=== PATIENT | female | born 1965 | race Caucasian/White ===

== ENCOUNTER 2019-01-10 15:00 | Outpatient (CLI) | payer BC ==
[~2019-01-10] VITALS: Ht 165.1 cm; Wt 94.8 kg
[2019-01-10] MEDS ORDERED: ROSU20TA31 PO (16:03)
[2019-01-10] MEDS ORDERED: CHOL500049 PO (16:03)
[2019-01-10] MEDS ORDERED: CHOL500050 PO (16:03)
[2019-01-10] MEDS ORDERED: FLUT9.9S NS (16:03)
[2019-01-10] MEDS ORDERED: RANI150T46 PO (16:03)
[2019-01-10] MEDS ORDERED: FISH1CAP15 PO (16:03)
[2019-01-10] MEDS ORDERED: METF-397 PO (16:03)
[2019-01-10] MEDS ORDERED: BUPR-42 PO (16:03)
[2019-01-11] MEDS ORDERED: ACHD5005 PO (12:37)
== END 2019-01-10 16:17 | disposition home or self-care (01) ==
LOC: PREOP 15:00
PROVIDERS: ATTEND Surgery
DX: Z01.818 Encounter for other preprocedural examination (principal)

== ENCOUNTER → 2019-01-10 | Outpatient (CLI) | payer BC ==
--- NOTE | 2019-01-03 14:25 | Diagnostic Imaging Report ---
INDICATION: Small cell lung carcinoma. Study is performed for initial staging. TECHNIQUE: Serum blood glucose level at the time of injection is 132 mg/dL. Patient was administered 13.4 mCi F-18 FDG intravenously and PET imaging from the top of skull to mid thighs was performed. Noncontrast CT was also performed for attenuation correction and anatomic correlation. FINDINGS: There is symmetric activity throughout the brain. Soft tissues of the neck are unremarkable. Imaging through the chest demonstrates an intensely hypermetabolic mass in the left hilum with SUV max of approximately 12. The area of nodular density peripheral to this in the superior segment of the left lower lobe does not demonstrate hypermetabolic activity. Pulmonary parenchyma is unremarkable. No metastatic nodules are seen. Imaging through the abdomen and pelvis demonstrates physiologic activity throughout the GI and tracts. No hypermetabolic lymphadenopathy is seen. IMPRESSION: Hypermetabolic left hilar mass correlating with patient's recently diagnosed lung carcinoma. No other mediastinal or hilar hypermetabolism is seen. No pulmonary parenchymal, abdominal or pelvic hypermetabolism is seen. Dictated by: Dictated on workstation # [id number]
[~2019-01-10] MED LIST: ACHD5005 PO; BUPR-42 PO; CHOL500049 PO; CHOL500050 PO; FISH1CAP15 PO; FLUT9.9S NS; GADOBUTROL 10 MMOL/10 ML (GADAVIST) VIAL IV ONE; METF-397 PO; RANI150T46 PO; ROSU20TA31 PO
--- NOTE | 2019-01-10 12:02 | Diagnostic Imaging Report ---
CLINICAL INDICATION: Patient with lung cancer. EXAM: MRI of the brain performed without and with 8 cc of Gadavist IV contrast. Sequences include axial DWI, ADC map, coronal gradient echo, axial T2, axial FLAIR, axial T1, axial T1 post IV contrast, coronal T1 fat-sat post IV contrast, and sagittal T1 post IV contrast. COMPARISON: None. FINDINGS: There is a very subtle 2 mm area of enhancement involving the posterior right frontal lobe which is best seen on the sagittal postcontrast sequence series 10, image 20 and coronal postcontrast sequence series 9, image 14. This is partially visualized on the axial sequence. There is no significant high T2 signal seen in the region. This area is nonspecific. There are no prior studies for comparison. There are no other areas concerning for abnormal IV contrast enhancement seen on this exam. There is pulsation artifact seen across the bilateral temporal lobes and frontal lobe regions. There is focal and patchy areas of high T2 signal white matter changes seen throughout both cerebral hemispheres, likely representing chronic small vessel ischemic disease. Brain parenchymal volume appears appropriate for patient's age. The [place] vascular structures show no gross abnormality as visualized. The pituitary gland, sella, and suprasellar regions are unremarkable as visualized. There is no evidence of hydrocephalus. The basal cisterns are unremarkable. The extra-cranial soft tissue, skull, and orbits are unremarkable. There is a small mucus retention cyst involving the left maxillary sinus. There is a small amount of fluid in the left mastoid air cells. IMPRESSION: 1: There is a very subtle 2 mm area of enhancement in the posterior right frontal lobe region which is mainly seen on the coronal and sagittal postcontrast sequences. There is no associated high T2 signal in the area. This area is nonspecific, but metastatic disease should be excluded. Followup MRI of the brain with and without contrast in two months is suggested for further evaluation. High-resolution 3D T1 or FSPGR pre- and postcontrast sequences should be obtained to better evaluate this area. 2: Otherwise, the remainder of the brain parenchyma is unremarkable for patient's age with mild chronic small vessel ischemic disease. 3: Mild paranasal sinus disease and a small amount of fluid in the left mastoid air cells. Dictated by: Dictated on workstation # [id number]
== END ==
LOC: RAD 01-03 09:00
PROVIDERS: ATTEND Internal Medicine Hematology & Oncology
DX: C34.90 Malignant neoplasm of unspecified part of unspecified bronchus or lung (principal); I67.82 Cerebral ischemia; J32.8 Other chronic sinusitis
CPT/HCPCS: 70553

== ENCOUNTER 2019-01-11 11:16 | Day surgery (SDC) | payer BC ==
[~2019-01-11] VITALS: Ht 165.1 cm; Wt 94.8 kg
[2019-01-11] VITALS (8 sets, daily range): BP systolic 123–133; BP diastolic 73–92
[~2019-01-11 11:16] MED LIST changes: -ACHD5005 PO; -GADOBUTROL 10 MMOL/10 ML (GADAVIST) VIAL IV ONE
[2019-01-11] MEDS ORDERED: BUP/EPI 0.5% 1:200,000 (SENSORCAINE) 30 ML VIAL ONE (11:29)
[2019-01-11] MEDS ORDERED: HEParin (CENTRAL IV FLUSH) 500 UNIT/5 ML SYR ONE (11:29)
[2019-01-11] MEDS ORDERED: 0.9% SODIUM CHLORIDE PF INJ 20 ML VIAL ONE (11:30)
[2019-01-11] MEDS ORDERED: LIDOCAINE 1% INJ 20 ML 20 ML VIAL ONE (11:30)
--- OUTSIDE RECORDS SUMMARY | 2019-01-11 11:31 | XMS REPORT | Continuity of Care Document ---
Author Author [facility] Address [address] [place] [address] Care Team Providers Care Manager Sql Name Role Phone Marlene Gr PCP Unavailable Marlene Gr Attphys Unavailable Allergies, Adverse Reactions, Alerts Allergen Type Severity Reaction Last Updated Verified Status clonazepam Allergy Unknown UNKNOWN November 27, 2018 Y Active Penicillins Allergy Unknown UNKNOWN November 27, 2018 Y Active varenicline Allergy Unknown UNKNOWN November 27, 2018 Y Active Medications Active Medications Medication Dose Units Route Sig Qty Days Start Date Status Loratadine [Claritin] 10 MG Oral daily May 17, 2018 Active [place]-3 Fatty Acids [Fish Oil Concentrate] 1000 MG Oral daily May 17, 2018 Active Cholecalciferol (Vitamin D3) 4000 UNIT Oral daily May 17, 2018 Active Folic Acid 1 MG Oral daily May 17, 2018 Active Ranitidine Hcl [Zantac] 150 MG Oral Twice a Day May 17, 2018 Active Fluticasone Propionate [Flonase Allergy Relief] 2 SPRAY Nasal daily 18.2 November 23, 2018 Active Metformin 500 MG Oral Twice a Day 180 November 23, 2018 Active Sulfamethoxazole-Trimethoprim 1 TAB Oral Twice a Day 20 10 November 23, 2018 Active Bupropion Hcl 150 MG Oral Once 90 November 23, 2018 Active Discontinued Medications Medication Dose Units Route Sig Qty Days Start Date Discontinued Date Status Fluticasone Propionate [Flonase Allergy Relief] 2 SPRAY Nasal daily May 17, 2018 November 23, 2018 Discontinued Rosuvastatin [Crestor] 20 MG Oral daily May 17, 2018 May 17, 2018 Discontinued Ranitidine Hcl [Zantac] 150 MG Oral daily May 17, 2018 May 17, 2018 Discontinued Methotrexate Sodium 10 MG Oral .once weekly May 17, 2018 November 23, 2018 Discontinued Metformin 500 MG Oral Twice a Day May 17, 2018 May 17, 2018 Discontinued Bupropion Hcl [Wellbutrin Sr] 150 MG Oral Twice a Day May 17, 2018 November 23, 2018 Discontinued Metformin 500 MG Oral Twice a Day 180 May 17, 2018 November 23, 2018 Discontinued Rosuvastatin [Crestor] 20 MG Oral daily 90 May 17, 2018 November 23, 2018 Discontinued Problem List Active Problems Medical Problem Onset Date Status History of abnormal cervical Pap smear Active JUSTIN (dyspnea on exertion) Active Diabetes mellitus Active Anxiety Active Arthritis Active Depression Active Seasonal allergies Active Migraines Active Hyperlipidemia Active Psoriasis Active Tobacco abuse Active Abscess of skin of abdomen Active Mass of left lung Active Diabetes mellitus type 2 in obese Active Screening for breast cancer Active Pleurisy Active Vitamin D deficiency Active Inactive/Resolved Problems Medical Problem Onset Date Status Abscess, suprapubic Resolved Procedures Procedure Date Status MM screening mammo BI November 30, 2018 completed Respiratory Panel (PCR) November 27, [address] angio chest PE protocol November 27, 2018 completed XR chest 1V November 27, 2018 completed Relevant Diagnostic Tests and/or Laboratory Data Laboratory Results Test Date/Time Result Interp. Ref. Range Result Comment White Blood Count November 27, 2018 3:21pm 6.0 10^3/uL 4.5-11.0 Red Blood Count November 27, 2018 3:21pm 4.24 10^6/uL 3.50-5.40 Hemoglobin November 27, 2018 3:21pm 14.5 g/dL 12.0-16.0 Hematocrit November 27, 2018 3:21pm 41.9 % 36-48 Mean Corpuscular Volume November 27, 2018 3:21pm 98.9 fL 79-99 Mean Corpuscular Hemoglobin November 27, 2018 3:21pm 34.2 pg High 25.0-34.0 Mean Corpuscular Hemoglobin Concent November 27, 2018 3:21pm 34.6 g/dL 31.0- 36.0 Red Cell Distribution Width November 27, 2018 3:21pm 13.2 % 11.0-15.0 Platelet Count November 27, 2018 3:21pm 179 10^3 uL 130-400 Mean Platelet Volume November 27, 2018 3:21pm 9.6 fL 7.0-11.0 Neutrophils (%) (Auto) November 27, 2018 3:21pm 71.5 % 43.0-72.0 Lymphocytes (%) (Auto) November 27, 2018 3:21pm 15.7 % 15.0-45.0 Monocytes (%) (Auto) November 27, 2018 3:21pm 8.8 % 1.0-12.0 Eosinophils (%) (Auto) November 27, 2018 3:21pm 3.6 % 0.0-6.0 Basophils (%) (Auto) November 27, 2018 3:21pm 0.4 % 0.0-2.0 Neutrophils # (Auto) November 27, 2018 3:21pm 4.3 10^3 uL 1.0-8.0 Lymphocytes # (Auto) November 27, 2018 3:21pm 0.9 10^3 uL Low 1.0-3.0 Monocytes # (Auto) November 27, 2018 3:21pm 0.5 10^3 uL 0.0-1.0 Eosinophils # (Auto) November 27, 2018 3:21pm 0.2 10^3 uL 0.0-0.4 Basophils # (Auto) November 27, 2018 3:21pm 0.0 10^3 uL 0.0-0.2 D-Dimer November 27, 2018 3:21pm 0.88 ug/mL High <0.50 D-Dimer results: D-Dimer less than 0.50 mg/L and otherwise normal patient history=LOW PROBABILITY OF DVT/PE. D=Dimer greater than 0.50 mg/L=CONTINUE INVESTIGATION TO RULE OUT DVT/PE. Comment: A thrombolytic event cannot be excluded with certainty based solely on D-Dimer result. D-Dimer may also be elevated in a variety of disorders including sepsis, DIC, trauma, liver disease, hematoma, malignancy, stress, heavy exercising, advanced age, , coronary disease, inflammation, diabetes and thrombolytic therapy. D-Dimer levels may be decreased in patients on anticoagulant therapy. Urine Color November 27, 2018 6:35pm Yellow Yellow Urine Appearance November 27, 2018 6:35pm Clear Clear Urine pH November 27, 2018 6:35pm 6.0 4.5 - 7.5 Urine Specific [place] November 27, 2018 6:35pm 1.010 1.010-1.025 Urine Protein November 27, 2018 6:35pm Negative Neg-Trace Urine Glucose (UA) November 27, 2018 6:35pm Negative Negative Urine Ketones November 27, 2018 6:35pm Negative Negative Urine Blood November 27, 2018 6:35pm Negative Negative Urine Nitrite November 27, 2018 6:35pm Negative Negative Urine Bilirubin November 27, 2018 6:35pm Negative Negative Urine Urobilinogen November 27, 2018 6:35pm 0.2 <=1.0 Urine Leukocyte Esterase November 27, 2018 6:35pm Negative Negative Urine Culture Indicated November 27, 2018 6:35pm Not Indicated No Culture Reflex Ordered. The specimen did not meet the following criteria OR contained >25 epithelials, indicating contamination. * Culture Criteria: * * * * Urinalysis Leukocyte 1+ or > * * Urinalysis Nitrates + * * Microscopic WBC 10 or > * * Microscopic Bacteria 2+ or > * * Microscopic Yeast 2+ or > * Urinalysis Comment November 27, 2018 6:35pm See comment Asymptomatic bacteriuria should seldom if ever be treated unless related to or urologic surgery. Symptomatic urinary tract infection (UTI) is defined by 2 or more of the following without an alternative explanation: - Fever - Flank pain or tenderness - Suprapubic pain or tenderness - Costovertebral angle pain or tenderness - Acute hematuria - Dysuria - New or marked increase in frequency / urgency Pyuria alone is not a criterion for symptomatic UTI. Source: CDC National Healthcare Safety Network Criteria for Defining UTI Events Treatment recommendations 1st line: Nitrofurantoin for 5 days; Bactrim DS for 3 days 2nd line: Beta-lactams for 5 days; Cipro or Levaquin for 3 days [place] Fluoroquinolones for severe infections or those with no alternative treatment options. Serious adverse effects outweigh benefits for patients with uncomplicated infections Sodium Level November 27, 2018 3:21pm 139 mmol/L 135-150 Potassium Level November 27, 2018 3:21pm 4.1 mmol/L 3.4-5.2 Chloride Level November 27, 2018 3:21pm 104 mmol/L 100-112 Carbon Dioxide Level November 27, 2018 3:21pm 23 mEq/L 18-30 Anion Gap November 27, 2018 3:21pm 12 mmol/L High 8-11 Blood Urea Nitrogen November 27, 2018 3:21pm 9 mg/dL 5-21 Creatinine November 27, 2018 3:21pm 1.02 mg/dL 0.60-1.30 Glomerular Filtration Rate Calc November 27, 2018 3:21pm 57 mL/Min > 60 The GFR is not validated for use in drug dosing adjustments. Continue to use estimated creatinine clearance per dosing reference text. Chronic Kidney Disease is defined as either kidney damage or a GFR less than 60 ml/min that persists for at least 3 months. Stage 3=30-59 ml/min Stage 4=15-29 ml/min Stage 5=<15 ml/min Glucose Level November 27, 2018 3:21pm 131 mg/dL High 70-99 Calcium Level November 27, 2018 3:21pm 9.6 mg/dL 8.6-10.5 Total Bilirubin November 27, 2018 3:21pm 0.2 mg/dL 0.0-1.2 Aspartate Amino Transf (AST/SGOT) November 27, 2018 3:21pm 14 U/L 6-37 Alanine Aminotransferase (ALT/SGPT) November 27, 2018 3:21pm 14 U/L 12-78 Troponin I November 27, 2018 3:21pm < 0.01 ng/mL 0.00-0.05 B-Type Natriuretic Peptide November 27, 2018 3:21pm 10.4 pg/mL <99 Total Protein November 27, 2018 3:21pm 7.3 g/dL 6.4-8.2 Albumin November 27, 2018 3:21pm 3.8 g/dL 3.3-4.5 Albumin/Globulin Ratio November 27, 2018 3:21pm 1.1 0.7-2.0 Alkaline Phosphatase November 27, 2018 3:21pm 98 U/L 50-136 Procalcitonin November 27, 2018 3:21pm 0.05 ng/mL 0.00-0.10 PCT Conc. Interpretation < 0.5 ng/mL Low risk for progression to severe sepsis &/or shock 0.5-2.0 ng/mL Sepsis should be considered > 2.0 ng/mL High risk for progression to severe sepsis &/or shock Microbiology Results Procedure Source Result Collection Date/Time Result Date/Time Respiratory Panel (PCR) Nasopharyngeal No results entered November 27, 2018 6: 35pm Chief Complaint and Reason for Visit Encounter Admit Date Chief Complaint Reason for Visit Departed Clinical November 30, 2018 3:07pm Encounter for screening mammogram for malignant ne Hospital Discharge Instructions No known hospital discharge instructions. Hospital Discharge Medications Medication Dose Units Route Sig Qty Days Order Date Status Instructions Loratadine 10 MG Oral daily May 17, 2018 Active Fluticasone Propionate 2 SPRAY Nasal daily May 17, 2018 Discontinued Rosuvastatin 20 MG Oral daily May 17, 2018 Discontinued Topaz-3 Fatty Acids 1000 MG Oral daily May 17, 2018 Active Cholecalciferol (Vitamin D3) 4000 UNIT Oral daily May 17, 2018 Active Ranitidine Hcl 150 MG Oral daily May 17, 2018 Discontinued Methotrexate Sodium 10 MG Oral .once weekly May 17, 2018 Discontinued Metformin 500 MG Oral Twice a Day May 17, 2018 Discontinued Bupropion Hcl 150 MG Oral Twice a Day May 17, 2018 Discontinued Folic Acid 1 MG Oral daily May 17, 2018 Active Ranitidine Hcl 150 MG Oral Twice a Day May 17, 2018 Active Metformin 500 MG Oral Twice a Day 180 May 17, 2018 Discontinued Rosuvastatin 20 MG Oral daily 90 May 17, 2018 Discontinued Fluticasone Propionate 2 SPRAY Nasal daily 18.2 November 23, 2018 Active Metformin 500 MG Oral Twice a Day 180 November 23, 2018 Active Sulfamethoxazole-Trimethoprim 1 TAB Oral Twice a Day 20 10 November 23, 2018 Active Bupropion Hcl 150 MG Oral Once 90 November 23, 2018 Active Encounters Encounter Facility Location Admit/Visit Date Discharge/Departure Date Attending Provider Departed Clinical [facility] Radiology November 30, 2018 3:07pm November 30, 2018 3:08pm Marlene Gr Departed Emergency [facility] Emergency Department November 27, 2018 2:57pm November 27, 2018 9:22pm Functional Status No known functional status. Immunizations Immunization Name Date Given Type Tetanus, Diphtheria, Pertussis (Tdap) November 04, 2016 Historical Payers Payer Name Policy Type Covered Republican Covered Republican Id Relationship Subscriber Subscriber Id [employer] Walter Castro [id number] Walter Castro [id number] Self Pay Plan of Care No Known Plan of Care Information Social History No known social history. Vital Signs Vital Reading Result Reference Range Collection Date/Time Height 5 ft 5 in November 27, 2018 3:03pm Weight 214 lb November 27, 2018 3:03pm Temperature 97.6 F 97.5 F-99.5 F November 27, 2018 3:03pm Pulse 98 BPM 60-90 November 27, 2018 3:03pm Respiration 24 RPM 12-20 November 27, 2018 3:03pm Pulse Oximetry 95 % 90-100 November 27, 2018 3:03pm Blood Pressure Systolic 155 100-160 November 27, 2018 3:03pm Blood Pressure Diastolic 96 50-80 November 27, 2018 3:03pm Body Mass Index 35.6 November 27, 2018 3:03pm
--- OUTSIDE RECORDS SUMMARY | 2019-01-11 11:31 | XMS REPORT | Continuity of Care Document ---
Author Author [facility] Address [address] [place] [address] Care Team Providers Care It Security Consulting Director Name Role Phone Unavailable Unavailable Allergies, Adverse Reactions, Alerts Allergen Type Severity Reaction Last Updated Verified Status clonazepam Allergy Unknown UNKNOWN November 27, 2018 Y Active Penicillins Allergy Unknown UNKNOWN November 27, 2018 Y Active varenicline Allergy Unknown UNKNOWN November 27, 2018 Y Active Medications Active Medications Medication Dose Units Route Sig Qty Days Start Date Status Loratadine [Claritin] 10 MG Oral daily May 17, 2018 Active [place]-3 Fatty Acids [Fish Oil Concentrate] 1000 MG [...] a Day 180 November 23, 2018 Active Bupropion Hcl 150 MG Oral Once 90 November 23, 2018 Active Rosuvastatin 20 MG Oral daily 30 December 01, 2018 Active Cholecalciferol (Vitamin D3) 56885 UNIT Oral Weekly 12 84 December 01, 2018 Active Discontinued Medications Medication Dose Units [...] May 17, 2018 November 23, 2018 Discontinued Sulfamethoxazole-Trimethoprim 1 TAB Oral Twice a Day 20 10 November 23, 2018 December 03, 2018 Discontinued Problem List Active Problems Medical [...] screening mammo BI November 30, 2018 completed Reason for Referral Reason for Referral Date Referral was Provided Provider Office Contact Location December 05, 2018 AGUSTIN BONNER Relevant Diagnostic Tests and/or Laboratory Data No known relevant diagnostic tests, laboratory data, and/or discharge summary. Hospital Discharge Instructions No known hospital discharge instructions. Hospital Discharge Medications Medication Dose Units Route Sig Qty Days Order Date Status Instructions Loratadine 10 MG Oral daily May 17, 2018 Active Fluticasone Propionate 2 SPRAY Nasal daily May 17, 2018 Discontinued Rosuvastatin 20 MG Oral daily May 17, 2018 Discontinued [place]-3 Fatty Acids 1000 MG Oral daily May [...] a Day 20 10 November 23, 2018 Discontinued Bupropion Hcl 150 MG Oral Once 90 November 23, 2018 Active Rosuvastatin 20 MG Oral daily 30 December 01, 2018 Active Cholecalciferol (Vitamin D3) 84548 UNIT Oral Weekly 12 84 December 01, 2018 Active Encounters Encounter Facility Location Admit/Visit Date Discharge/Departure Date Attending Provider Registered Inpatient [facility] December 05, 2018 1:51pm Marlene Gr Departed Clinical [facility] Radiology November 30, 2018 3:07pm November 30, 2018 3:08pm Marlene Gr Functional Status No known functional status. Immunizations Immunization Name Date Given Type Tetanus, Diphtheria, Pertussis (Tdap) November 04, 2016 Historical Payers Payer Name Policy Type Covered Alliance Party Covered Alliance Party Id Relationship Subscriber Subscriber Id [facility] [employer] Walter Castro [id number] Walter Castro [id number] Self Pay Plan of Care No Known Plan of Care Information Social History No known social history. Vital Signs No known vital signs results.
--- OUTSIDE RECORDS SUMMARY | 2019-01-11 11:31 | XMS REPORT | Continuity of Care Document ---
Author Author [facility] Address [address] [place] [place] [address] Care Team Providers Care Fun House Operator Name Role Phone Marlene Gr PCP Unavailable Juanito Reyes Jr, Rndphys Unavailable Allergies, Adverse Reactions, Alerts Allergen Type Severity Reaction Last Updated Verified Status clonazepam Allergy Unknown UNKNOWN November 27, 2018 Y Active Penicillins Allergy Unknown UNKNOWN November 27, 2018 Y Active varenicline Allergy Unknown UNKNOWN November 27, 2018 Y Active Medications Active Medications Medication Dose Units Route Sig Qty Days Start Date Status Loratadine [Claritin] 10 MG Oral daily May 17, 2018 Active [place]-3 Fatty Acids [Fish Oil Concentrate] 1000 MG [...] Abscess, suprapubic Resolved Procedures Procedure Date Status Respiratory Panel (PCR) November 27, 2018 completed [...] 27, 2018 3:21pm 0.0 10^3 uL 0.0-0.2 Neutrophils % (Manual) November 23, 2018 10:38am 70.0 % High 50-65 Band Neutrophils % (Manual) November 23, 2018 10:38am 1.0 % 0-10 Lymphocytes % (Manual) November 23, 2018 10:38am 19.0 % 15-45 Monocytes % (Manual) November 23, 2018 10:38am 10.0 % 0-10 Neutrophils # (Manual) November 23, 2018 10:38am 5.1 # 1.0-8.0 Lymphocytes # (Manual) November 23, 2018 10:38am 1.4 # 1.0-3.0 Monocytes # (Manual) November 23, 2018 10:38am 0.7 # 0.0-1.0 D-Dimer November 27, 2018 3:21pm 0.88 ug/mL [...] November 27, 2018 6:35pm Clear Clear Urine Appearance November 23, 2018 2:09pm Clear Clear Urine pH November 27, 2018 6:35pm 6.0 4.5 - 7.5 Urine Specific [place] November 27, 2018 6:35pm 1.010 1.010-1.025 Urine Protein November 27, 2018 6:35pm Negative Neg-Trace Urine Protein November 23, 2018 2:09pm Negative Neg-Trace Urine Glucose (UA) November 27, 2018 6:35pm Negative Negative Urine Ketones November 27, 2018 6:35pm Negative Negative Urine Blood November 27, 2018 6:35pm Negative Negative Urine Blood November 23, 2018 2:09pm Negative Negative Urine Nitrite November 27, 2018 6:35pm Negative Negative Urine Nitrite November 23, 2018 2:09pm Negative Negative Urine Bilirubin November 27, 2018 6:35pm Negative Negative Urine Urobilinogen November 27, 2018 6:35pm 0.2 <=1.0 Urine Leukocyte Esterase November 27, 2018 6:35pm Negative Negative Urine Leukocyte Esterase November 23, 2018 2:09pm Negative Negative Urine Culture Indicated November 27, [...] not a criterion for symptomatic UTI. Source: [facility] National Healthcare Safety Network Criteria for Defining UTI Events Treatment recommendations 1st line: Nitrofurantoin for 5 days; Bactrim DS for 3 days 2nd line: Beta-lactams for 5 days; Cipro or Levaquin for 3 days [place] Fluoroquinolones for severe infections or those with [...] 27, 2018 3:21pm 131 mg/dL High 70-99 Hemoglobin A1c November 23, 2018 10:38am 5.8 % <6.4 Hemoglobin A1C levels are related to mean blood glucose during the preceding 2 - 3 months. The relationship table below may be used as a general guide. HGB A1C APPROX. MEAN GLUCOSE 5% 97 mg/dL 6% 126 mg/dL 7% 154 mg/dL 8% 183 mg/dL 9% 212 mg/dL 10% 240 mg/dL 11% 269 mg/dL 12% 298 mg/dL Each 1% increase in HGB A1C is a reflection of an increase in mean glucose of approximately 30 mg/dl. Calcium Level November 27, 2018 3:21pm 9.6 [...] November 27, 2018 3:21pm 98 U/L 50-136 Thyroid Stimulating Hormone (Reflex November 23, 2018 10:38am 0.636 uIU/mL 0.35-4.94 25-Hydroxy Vitamin D Total November 23, 2018 10:38am 19 ng/mL Low 30-100 Procalcitonin November 27, 2018 3:21pm 0.05 ng/mL 0.00-0.10 PCT Conc. Interpretation < 0.5 ng/mL Low risk for progression to severe sepsis &/or shock 0.5-2.0 ng/mL Sepsis should be considered > 2.0 ng/mL High risk for progression to severe sepsis &/or shock Lipoprotein Evaluation November 23, 2018 10:38am See Separate Report Microbiology Results Procedure Source Result Collection Date/Time Result Date/Time Respiratory Panel (PCR) Nasopharyngeal No results entered November 27, 2018 6: 35pm Chief Complaint and Reason for Visit Encounter Admit Date Chief Complaint Reason for Visit Departed Emergency November 27, 2018 2:57pm Chest pain Hospital Discharge Instructions No known hospital discharge instructions. Hospital Discharge Medications Medication Dose Units Route Sig Qty Days Order Date Status Instructions Loratadine 10 MG Oral daily May 17, 2018 Active Fluticasone Propionate 2 SPRAY Nasal daily May 17, 2018 Discontinued Rosuvastatin 20 MG Oral daily May 17, 2018 Discontinued [place]-3 Fatty Acids 1000 MG Oral daily May [...] Admit/Visit Date Discharge/Departure Date Attending Provider Departed Emergency [facility] Emergency Department November 27, 2018 2:57pm November 27, 2018 9:22pm Departed [facility] October 10:37am November 23, 2018 10:38am Marlene Gr Departed Physician/Provider Office Visit [facility] Family Medicine November 23, 2018 9:07am November 23, 2018 3:39pm Marlene Gr Functional Status No known functional status. Immunizations Immunization Name Date Given Type Tetanus, Diphtheria, Pertussis (Tdap) November 04, 2016 Historical Payers Payer Name Policy Type Covered Alliance Party Covered Alliance Party Id Relationship Subscriber Subscriber Id [facility] [employer] Walter Castro [id number] Walter Castro [id number] Self Pay Plan of Care No Known [...]
--- OUTSIDE RECORDS SUMMARY | 2019-01-11 11:32 | XMS REPORT | Continuity of Care Document ---
Author Author [facility] Address [address] [place] [address] Care Team Providers Care Activities Aide Name Role Phone Marlene Gr PCP Marlene Gr Attphys Allergies, Adverse Reactions, Alerts Allergen Type Severity Reaction Last Updated Verified Status clonazepam Allergy Unknown UNKNOWN May 17, 2018 Y Active Penicillins Allergy Unknown UNKNOWN May 17, 2018 Y Active varenicline Allergy Unknown UNKNOWN May 17, 2018 Y Active Medications Active Medications Medication Dose Units Route Sig Qty Start Date Status Loratadine [Claritin] 10 MG Oral every day May 17, 2018 Active Fluticasone [Flonase Allergy Relief] 2 SPRAY Nasal every day May 17, 2018 Active [place]-3 Fatty Acids [Fish Oil Concentrate] 1000 MG Oral every day May 17, 2018 Active Cholecalciferol (Vitamin D3) 4000 UNIT Oral every day May 17, 2018 Active Methotrexate Sodium 10 MG Oral .once weekly May 17, 2018 Active Bupropion Hcl [Wellbutrin Sr] 150 MG Oral Twice a Day May 17, 2018 Active Folic Acid 1 MG Oral every day May 17, 2018 Active Ranitidine Hcl [Zantac] 150 MG Oral Twice a Day May 17, 2018 Active Metformin 500 MG Oral Twice a Day 180 May 17, 2018 Active Rosuvastatin [Crestor] 20 MG Oral every day 90 May 17, 2018 Active Discontinued Medications Medication Dose Units Route Sig Qty Start Date Discontinued Date Status Rosuvastatin [Crestor] 20 MG Oral every day May 17, 2018 May 17, 2018 Discontinued Ranitidine Hcl [Zantac] 150 MG Oral every day May 17, 2018 May 17, 2018 Discontinued Metformin 500 MG Oral Twice a Day May 17, 2018 May 17, 2018 Discontinued Problem List Active Problems Medical Problem Onset Date Status Abscess, suprapubic Active Diabetes mellitus Active Anxiety Active Arthritis Active Depression Active Seasonal allergies Active Migraines Active Hyperlipidemia Active Psoriasis Active Procedures No known history of procedures. Relevant Diagnostic Tests and/or Laboratory Data Laboratory Results Test Date/Time Result Interp. Ref. Range Result Comment Sodium Level May 17, 2018 9:11am 142 mmol/L 135-150 Potassium Level May 17, 2018 9:11am 4.1 mmol/L 3.4-5.2 Chloride Level May 17, 2018 9:11am 107 mmol/L 100-112 Carbon Dioxide Level May 17, 2018 9:11am 26 mEq/L 18-30 Anion Gap May 17, 2018 9:11am 9 mmol/L 8-11 Blood Urea Nitrogen May 17, 2018 9:11am 8 mg/dL 5-21 Creatinine May 17, 2018 9:11am 0.81 mg/dL 0.60-1.30 Glomerular Filtration Rate Calc May 17, 2018 9:11am > 60 mL/Min The GFR is not validated for use in drug dosing adjustments. Continue to use estimated creatinine clearance per dosing reference text. Chronic Kidney Disease is defined as either kidney damage or a GFR less than 60 ml/min that persists for at least 3 months. Stage 3=30-59 ml/min Stage 4=15-29 ml/min Stage 5=<15 ml/min Glucose Level May 17, 2018 9:11am 107 mg/dL High 70-99 Hemoglobin A1c May 17, 2018 9:11am 5.7 % Hemoglobin A1C levels are related to mean [...] glucose of approximately 30 mg/dl. Calcium Level May 17, 2018 9:11am 9.3 mg/dL 8.6-10.5 Total Bilirubin May 17, 2018 9:11am 0.4 mg/dL 0.0-1.2 Aspartate Amino Transf (AST/SGOT) May 17, 2018 9:11am 11 U/L 6-37 Alanine Aminotransferase (ALT/SGPT) May 17, 2018 9:11am 10 U/L Low 12 -78 Total Protein May 17, 2018 9:11am 7.1 g/dL 6.4-8.2 Albumin May 17, 2018 9:11am 3.9 g/dL 3.3-4.5 Albumin/Globulin Ratio May 17, 2018 9:11am 1.2 0.7-2.0 Triglycerides Level May 17, 2018 9:11am 185 mg/dL High LDL Cholesterol Direct May 17, 2018 9:11am 61 mg/dL Alkaline Phosphatase May 17, 2018 9:11am 96 U/L 50-136 Advance Directives Advance Directive Response Recorded Date/Time Advance Directive on File? GIVEN November 18, 2017 10:49am Hospital Discharge Instructions No known hospital discharge instructions. Hospital Discharge Medications Medication Dose Units Route Sig Qty Days Order Date Status Instructions Loratadine 10 MG Oral every day May 17, 2018 Active Fluticasone 2 SPRAY Nasal every day May 17, 2018 Active Rosuvastatin 20 MG Oral every day May 17, 2018 Discontinued [place]-3 Fatty Acids 1000 MG Oral every day May 17, 2018 Active Cholecalciferol (Vitamin D3) 4000 UNIT Oral every day May 17, 2018 Active Ranitidine Hcl 150 MG Oral every day May 17, 2018 Discontinued Methotrexate Sodium 10 MG Oral .once weekly May 17, 2018 Active Metformin 500 MG Oral Twice a Day May 17, 2018 Discontinued Bupropion Hcl 150 MG Oral Twice a Day May 17, 2018 Active Folic Acid 1 MG Oral every day May 17, 2018 Active Ranitidine Hcl 150 MG Oral Twice a Day May 17, 2018 Active Metformin 500 MG Oral Twice a Day 180 May 17, 2018 Active Rosuvastatin 20 MG Oral every day 90 May 17, 2018 Active Encounters Encounter Facility Location Admit/Visit Date Discharge/Departure Date Attending Provider Departed [facility] in Clinic May 17, 2018 9:09am May 17, 2018 9:10am Marlene Gr Departed Physician/Provider Office Visit [facility] Family Medicine May 17, 2018 8:24am May 17, 2018 3:59pm Marlene Gr Functional Status No known functional status. Immunizations No known immunizations. Payers Payer Name Policy Type Covered Democrat Covered Democrat Id Relationship Subscriber Subscriber Id [facility] Commerical Walter Castro [id number] Walter Castro [id number] Self Pay Plan of Care No Known Plan of Care Information Social History Query Response Date Recorded Comment second hand exposure Yes May 17, 2018 8:40pm substance use type does not use May 17, 2018 8:40pm Query Response Start Date Stop Date Smoking Status Current every day smoker Vital Signs Vital Reading Result Reference Range Collection Date/Time Height 5 ft 5 in May 17, 2018 8:41am Weight 200 lb May 17, 2018 8:41am Temperature 97.8 F 97.5 F-99.5 F May 17, 2018 8:41am Pulse 95 BPM 60-90 May 17, 2018 8:41am Respiration 20 RPM 12-20 May 17, 2018 8:41am Pulse Oximetry 94 % 90-100 May 17, 2018 8:41am Blood Pressure Systolic 110 100-160 May 17, 2018 8:41am Blood Pressure Diastolic 84 50-80 May 17, 2018 8:41am Body Mass Index 33.3 May 17, 2018 8:41am
--- OUTSIDE RECORDS SUMMARY | 2019-01-11 11:32 | XMS REPORT | Continuity of Care Document ---
Author Author [facility] Address [address] [place] [address] Care Team Providers Care Hvac Sales Representative Name Role Phone Unavailable Unavailable Allergies, Adverse Reactions, Alerts Allergen Type Severity Reaction Last Updated Verified Status clonazepam Allergy Unknown UNKNOWN November 23, 2018 Y Active Penicillins Allergy Unknown UNKNOWN November 23, 2018 Y Active varenicline Allergy Unknown UNKNOWN November 23, 2018 Y Active Medications Active Medications Medication Dose Units Route Sig Qty Days Start Date Status Loratadine [Claritin] 10 MG Oral daily May 17, 2018 Active [place]-3 Fatty Acids [Fish Oil Concentrate] 1000 MG [...] Active Procedures No known history of procedures. Reason for Referral Referral information is unavailable. Relevant Diagnostic Tests and/or Laboratory Data Laboratory Results Test Date/Time Result Interp. Ref. Range Result Comment White Blood Count November 23, 2018 10:38am 7.2 10^3/uL 4.5-11.0 Red Blood Count November 23, 2018 10:38am 4.49 10^6/uL 3.50-5.40 Hemoglobin November 23, 2018 10:38am 15.3 g/dL 12.0-16.0 Hematocrit November 23, 2018 10:38am 44.5 % 36-48 Mean Corpuscular Volume November 23, 2018 10:38am 98.9 fL 79-99 Mean Corpuscular Hemoglobin November 23, 2018 10:38am 33.9 pg 25.0-34.0 Mean Corpuscular Hemoglobin Concent November 23, 2018 10:38am 34.3 g/dL 31.0 -36.0 Red Cell Distribution Width November 23, 2018 10:38am 13.2 % 11.0-15.0 Platelet Count November 23, 2018 10:38am 218 10^3 uL 130-400 Mean Platelet Volume November 23, 2018 10:38am 10.1 fL 7.0-11.0 Neutrophils % (Manual) November 23, 2018 10:38am [...] November 23, 2018 10:38am 0.7 # 0.0-1.0 Urine Color November 23, 2018 2:09pm Yellow Yellow Urine Appearance November 23, 2018 2:09pm Clear Clear Urine pH November 23, 2018 2:09pm 7.0 4.5 - 7.5 Urine Specific [place] November 23, 2018 2:09pm 1.015 1.010-1.025 Urine Protein November 23, 2018 2:09pm Negative Neg-Trace Urine Glucose (UA) November 23, 2018 2:09pm Negative Negative Urine Ketones November 23, 2018 2:09pm Negative Negative Urine Blood November 23, 2018 2:09pm Negative Negative Urine Nitrite November 23, 2018 2:09pm Negative Negative Urine Bilirubin November 23, 2018 2:09pm Negative Negative Urine Urobilinogen November 23, 2018 2:09pm 0.2 <=1.0 Urine Leukocyte Esterase November 23, 2018 2:09pm Negative Negative Urinalysis Comment November 23, 2018 2:09pm See comment Asymptomatic bacteriuria should seldom if [...] days; Cipro or Levaquin for 3 days [place] Fluoroquinolones for severe infections or those with no alternative treatment options. Serious adverse effects outweigh benefits for patients with uncomplicated infections Sodium Level November 23, 2018 10:38am 143 mmol/L 135-150 Potassium Level November 23, 2018 10:38am 3.9 mmol/L 3.4-5.2 Chloride Level November 23, 2018 10:38am 106 mmol/L 100-112 Carbon Dioxide Level November 23, 2018 10:38am 27 mEq/L 18-30 Anion Gap November 23, 2018 10:38am 10 mmol/L 8-11 Blood Urea Nitrogen November 23, 2018 10:38am 10 mg/dL 5-21 Creatinine November 23, 2018 10:38am 0.79 mg/dL 0.60-1.30 Glomerular Filtration Rate Calc November 23, 2018 10:38am > 60 mL/Min > 60 The GFR is not validated for use in drug dosing adjustments. Continue to use estimated creatinine clearance per dosing reference text. Chronic Kidney Disease is defined as either kidney damage or a GFR less than 60 ml/min that persists for at least 3 months. Stage 3=30-59 ml/min Stage 4=15-29 ml/min Stage 5=<15 ml/min Glucose Level November 23, 2018 10:38am 105 mg/dL High 70-99 Hemoglobin A1c November 23, [...] of approximately 30 mg/dl. Calcium Level November 23, 2018 10:38am 9.8 mg/dL 8.6-10.5 Total Bilirubin November 23, 2018 10:38am 0.3 mg/dL 0.0-1.2 Aspartate Amino Transf (AST/SGOT) November 23, 2018 10:38am 11 U/L 6-37 Alanine Aminotransferase (ALT/SGPT) November 23, 2018 10:38am < 8 U/L Low 12- 78 Total Protein November 23, 2018 10:38am 7.7 g/dL 6.4-8.2 Albumin November 23, 2018 10:38am 4.2 g/dL 3.3-4.5 Albumin/Globulin Ratio November 23, 2018 10:38am 1.2 0.7-2.0 Alkaline Phosphatase November 23, 2018 10:38am 85 U/L 50-136 Thyroid Stimulating Hormone (Reflex November 23, 2018 10:38am 0.636 uIU/mL 0.35-4.94 Lipoprotein Evaluation November 23, 2018 10:38am See Separate Report Chief Complaint and Reason for Visit Encounter Admit Date Chief Complaint Reason for Visit Departed Physician/Provider Office Visit November 23, 2018 9:07am Physical Exam Hospital Discharge Instructions No known hospital discharge instructions. Hospital Discharge Medications Medication Dose Units Route Sig Qty Days Order Date Status Instructions Loratadine 10 MG Oral daily May 17, 2018 Active Fluticasone Propionate 2 SPRAY Nasal daily May 17, 2018 Discontinued Rosuvastatin 20 MG Oral daily May 17, 2018 Discontinued [place]-3 Fatty Acids 1000 MG Oral daily May [...] Admit/Visit Date Discharge/Departure Date Attending Provider Registered Clinical [facility] for Patients in Clinic November 23, 2018 10:37am Marlene Gr Departed Physician/Provider Office Visit [facility] Family Medicine November 23, 2018 9:07am November 23, 2018 3:39pm Marlene Gr Functional Status No known functional status. Immunizations Immunization Name Date Given Type Tetanus, Diphtheria, Pertussis (Tdap) November 04, 2016 Historical Payers Payer Name Policy Type Covered Constitution Party Covered Constitution Party Id Relationship Subscriber Subscriber Id Blue Cross Blue Shield Commerical Walter Castro [id number] Walter Castro [id number] Self Pay Plan of Care No Known Plan of Care Information Social History No known social history. Vital Signs Vital Reading Result Reference Range Collection Date/Time Height 5 ft 5 in November 23, 2018 9:11am Weight 214 lb 4 oz November 23, 2018 9:11am Temperature 98.0 F 97.5 F-99.5 F November 23, 2018 9:11am Pulse 107 BPM 60-90 November 23, 2018 9:11am Respiration 20 RPM 12-20 November 23, 2018 9:11am Pulse Oximetry 97 % 90-100 November 23, 2018 9:11am Blood Pressure Systolic 118 100-160 November 23, 2018 9:11am Blood Pressure Diastolic 84 50-80 November 23, 2018 9:11am Body Mass Index 35.6 November 23, 2018 9:11am
--- OUTSIDE RECORDS SUMMARY | 2019-01-11 11:32 | XMS REPORT | Continuity of Care Document ---
Author Organization Unknown Address [address] [place] [address] Care Team Providers Care Open Hearth Worker Name Role Phone SAKINA GrN Marlene Unavailable Insurance Providers Payer Name Policy Number Subscriber Name Relationship * [id number] [employer]PE OLSEN PATIENT/SELF Advance Directives Directive Response Recorded Date/Time Advance Directive Information: AD BROCHURE GIVEN TO PT 04/09/16 3:31pm Chief Complaint and Reason for Visit Reason for Visit CHEST PAIN & RASH Problems Active Medical Problems Problem Onset Date Recorded Date Status Zoster Unknown 04/09/16 Active Medications Current Home Medications Medication Dose Units Route Directions Days/Qty Instructions Start Date MEDICATION RECONCILIATION (Medication Reconciliation) 1 EACH EA 1 EACH BY MOUTH ONE TIME ONLY Calcium Carbonate (Tums) 200 MG TAB.CHEW 200 MG BY MOUTH DAILY NEEDED PRN HEART BURN Fenofibrate,Micronized (Fenofibrate) 134 MG CAPSULE 134 MG BY MOUTH DAILY Folic Acid 1 MG UD.TAB 1 MG BY MOUTH DAILY Hydrocodone 5MG/Acet 325MG ([place] 5-325 Tablet) 1 EACH TABLET 1-2 TAB BY MOUTH EVERY 6 HOURS NEEDED PRN PAIN 30 04/09/16 Ibuprofen (MOTRIN) 200 MG TABLET 200 MG BY MOUTH DAILY NEEDED PRN PAIN Metformin XR (Glucophage XR) 500 MG TAB.ER.24H 1,000 MG BY MOUTH DAILY Metformin XR (Glucophage XR) 500 MG TAB.ER.24H 500 MG BY MOUTH BEDTIME Methotrexate Sodium (Methotrexate) 25 MG/1 ML VIAL 0.4 ML INJ WEEKLY Naproxen Sodium (Aleve) 220 MG TABLET 220 MG BY MOUTH DAILY NEEDED PRN PAIN Pravastatin (Pravachol) 40 MG TABLET 40 MG BY MOUTH BEDTIME Ranitidine (Zantac) 150 MG TAB 150 MG BY MOUTH DAILY NEEDED PRN HEART BURN Social History No social history. Hospital Discharge Instructions No hospital discharge instructions. Plan of Care Discharge Date 04/09/16 Disposition HOME/SELF CARE Condition at Discharge Satisfactory Instructions/Education Provided DI for Shingles Prescriptions See Medications Section Referrals Marlene Gr APRN - Functional Status No functional status results. Allergies, Adverse Reactions, Alerts Allergen Type Severity Reaction Status Last Updated PENICILLINS Allergy Unknown UNKNOWN Active 01/10/15 CLONAZEPAM Allergy Unknown UNKNOWN Active 01/10/15 VARENICLINE Allergy Unknown UNKNOWN Active 01/10/15 Immunizations Name Date Given Type *Flu Shot: None Historical *Tetanus Shot: Unknown Historical Vital Signs Vital Reading Collection Date/Time Result Blood Pressure 04/09/16 5:10pm 114/72 Patient Temperature 04/09/16 3:33pm 98.2 Temperature Source 04/09/16 3:33pm Temporal Respiratory Rate 04/09/16 5:10pm 16 Pulse Rate 04/09/16 5:10pm 70 Bedside Pulse Oximetry 04/09/16 5:10pm 96 Height 04/09/16 3:33pm 5 ft 5 in Weight 04/09/16 3:33pm 199 lb 0 oz Body Mass Index 04/09/16 3:33pm 33.1 Results No known relevant diagnostic tests, laboratory data and/or discharge summary. Procedures No Known History of Procedures. Encounters Encounter Location Arrival/Admit Date Discharge/Depart Date Attending Provider Departed Emergency [facility] 04/09/16 3:30pm 04/09/16 5:10pm Jaime Lafleur DO Registered Referral [facility] 01/16/16 8:49am COSMO Gr Encounter Diagnosis Herpes zoster
--- OUTSIDE RECORDS SUMMARY | 2019-01-11 11:32 | XMS REPORT | Continuity of Care Document ---
Author Author [facility] Address [address] [place] [address] Care Team Providers Care Crime Scene Technician Name Role Phone Marlene Gr PCP Marlene Gr Attphys Allergies, Adverse Reactions, Alerts Allergen Type Severity Reaction Last Updated Verified Status clonazepam Allergy Unknown UNKNOWN August 26, 2017 N Active Penicillins Allergy Unknown UNKNOWN August 26, 2017 N Active varenicline Allergy Unknown UNKNOWN August 26, 2017 N Active Medications No medication information available. Problem List No problem information available. Procedures Procedure Date Status MM screening mammo BI November 29, 2017 completed Relevant Diagnostic Tests and/or Laboratory Data No known relevant diagnostic tests, laboratory data, and/or discharge summary. Advance Directives Advance Directive Response Recorded Date/Time Advance Directive on File? GIVEN November 18, 2017 10:49am Chief Complaint and Reason for Visit Encounter Admit Date Chief Complaint Reason for Visit Departed Clinical November 29, 2017 10:52am Encounter for screening mammogram for malignant ne Hospital Discharge Instructions No known hospital discharge instructions. Encounters Encounter Facility Location Admit/Visit Date Discharge/Departure Date Attending Provider Departed Clinical [facility] Radiology November 29, 2017 10:52am November 29, 2017 10:53am Marlene Gr Functional Status No known functional status. Immunizations No known immunizations. Payers Payer Name Policy Type Covered Libertarian Covered Libertarian Id Relationship Subscriber Subscriber Id Blue Cross Blue [facility] Commerical Walter Castro [id number] Walter Castro [id number] Self Pay Plan of Care No Known Plan of Care Information Social History No known social history. Vital Signs No known vital signs results.
--- OUTSIDE RECORDS SUMMARY | 2019-01-11 11:32 | XMS REPORT | Continuity of Care Document ---
Author Author [facility] Address [address] [place] [address] Care Team Providers Care Technical Services Rep Name Role Phone Marlene Gr PCP Unavailable [...] MG Oral daily May 17, 2018 Active [place]-3 Fatty Acids [Fish Oil Concentrate] 1000 MG [...] History of abnormal cervical Pap smear Active Diabetes mellitus Active Anxiety Active Arthritis Active Depression Active Seasonal allergies Active Migraines Active Hyperlipidemia Active Psoriasis Active Abscess of skin of abdomen Active Screening for breast cancer Active Vitamin D deficiency Active Inactive/Resolved Problems Medical Problem Onset Date Status Abscess, suprapubic Resolved Procedures No known history of procedures. Relevant [...] 2:09pm 7.0 4.5 - 7.5 Urine Specific [place] November 23, 2018 2:09pm 1.015 1.010-1.025 Urine [...] days; Cipro or Levaquin for 3 days [place] Fluoroquinolones for severe infections or those with [...] November 23, 2018 10:38am See Separate Report Hospital Discharge Instructions No known hospital discharge instructions. Hospital Discharge Medications Medication Dose Units Route Sig Qty Days Order Date Status Instructions Loratadine 10 MG Oral daily May 17, 2018 Active Fluticasone Propionate 2 SPRAY Nasal daily May 17, 2018 Discontinued Rosuvastatin 20 MG Oral daily May 17, 2018 Discontinued [place]-3 Fatty Acids 1000 MG Oral daily May [...] Admit/Visit Date Discharge/Departure Date Attending Provider Departed [facility] for Patients in Clinic October 10:37am November 23, 2018 10:38am Marlene Gr Departed Physician/Provider Office Visit [facility] Family Medicine November 23, 2018 9:07am November 23, 2018 3:39pm Marlene Gr Functional Status No known functional status. Immunizations Immunization Name Date Given Type Tetanus, Diphtheria, Pertussis (Tdap) November 04, 2016 Historical Payers Payer Name Policy Type Covered Republican Covered Republican Id Relationship Subscriber Subscriber Id Blue Cross [facility] Commerical Walter Riosts [id number] Walter Riosts [id number] Self Pay Plan of Care No Known [...]
--- OUTSIDE RECORDS SUMMARY | 2019-01-11 11:32 | XMS REPORT | Continuity of Care Document ---
Author Author [facility] Address [address] [place] [address] Care Team Providers Care Life Science Research Assistant Name Role Phone Unavailable Unavailable Allergies, Adverse Reactions, Alerts Allergen Type Severity Reaction Last Updated Verified Status clonazepam Allergy Unknown UNKNOWN May 17, 2018 Y Active Penicillins Allergy Unknown UNKNOWN May 17, 2018 Y Active varenicline Allergy Unknown UNKNOWN May 17, 2018 Y Active Medications Active Medications Medication Dose Units Route Sig Start Date Status Loratadine [Claritin] 10 MG Oral every day May 17, 2018 Active Fluticasone [Flonase Allergy Relief] 2 SPRAY Nasal every day April Active Rosuvastatin [Crestor] 20 MG Oral every day May 17, 2018 Active [place]-3 Fatty Acids [Fish Oil Concentrate] 1000 MG Oral every day May 17, 2018 Active Cholecalciferol (Vitamin D3) 4000 UNIT Oral every day May 17, 2018 Active Methotrexate Sodium 10 MG Oral .once weekly May 17, 2018 Active Metformin 500 MG Oral Twice a Day May 17, 2018 Active Bupropion Hcl [Wellbutrin Sr] 150 MG Oral Twice a Day May 17, 2018 Active Folic Acid 1 MG Oral every day May 17, 2018 Active Ranitidine Hcl [Zantac] 150 MG Oral Twice a Day May 17, 2018 Active Discontinued Medications Medication Dose Units Route Sig Start Date Discontinued Date Status Ranitidine Hcl [Zantac] 150 MG Oral every day May 17, 2018 May 17, 2018 Discontinued Problem List Active Problems Medical Problem Onset Date Status Diabetes mellitus Active Anxiety Active Arthritis Active [...] Reason for Visit Departed Physician/Provider Office Visit May 17, 2018 8:24am cholesterol & labs Hospital Discharge Instructions No known hospital discharge instructions. Hospital Discharge Medications Medication Dose Units Route Sig Qty Days Order Date Status Instructions Loratadine 10 MG Oral every day May 17, 2018 Active Fluticasone 2 SPRAY Nasal every day May 17, 2018 Active Rosuvastatin 20 MG Oral every day May 17, 2018 Active [place]-3 Fatty Acids 1000 MG Oral every day May 17, 2018 Active Cholecalciferol (Vitamin D3) 4000 UNIT Oral every day May 17, 2018 Active Ranitidine Hcl 150 MG Oral every day May 17, 2018 Discontinued Methotrexate Sodium 10 MG Oral .once weekly May 17, 2018 Active Metformin 500 MG Oral Twice a Day May 17, 2018 Active Bupropion Hcl 150 MG Oral Twice a Day May 17, 2018 Active Folic Acid 1 MG Oral every day May 17, 2018 Active Ranitidine Hcl 150 MG Oral Twice a Day May 17, 2018 Active Encounters Encounter Facility Location Admit/Visit Date Discharge/Departure Date Attending Provider Registered Clinical [facility] Lab for Patients in Clinic May 17, 2018 9:09am Marlene Gr Departed Physician/Provider Office Visit [facility] Family Medicine May 17, 2018 8:24am May 17, 2018 3:59pm Marlene Gr Functional Status No known functional status. Immunizations No known immunizations. Payers Payer Name Policy Type Covered Green Party Covered Green Party Id Relationship Subscriber Subscriber Id Blue Cross Blue [facility] Commerical Walter Gloria [id number] Walter Gloria [id number] Self Pay Plan of Care No Known Plan of Care Information Social History Query Response Date Recorded Comment second hand exposure Yes May 17, 2018 8:49am substance use type does not use May 17, 2018 8:49am Query Response Start Date Stop Date Smoking [...]
--- OUTSIDE RECORDS SUMMARY | 2019-01-11 11:33 | XMS REPORT | Continuity of Care Document ---
Author Author [facility] Address [address] [place] [address] Care Team Providers Care Piping Manager Name Role Phone Marlene Gr PCP Marlene Gr Attphys Allergies, Adverse Reactions, Alerts Allergen Type Severity Reaction Last Updated Verified Status clonazepam Allergy Unknown UNKNOWN August 26, 2017 N Active Penicillins Allergy Unknown UNKNOWN August 26, 2017 N Active varenicline Allergy Unknown UNKNOWN August 26, 2017 N Active Medications No medication information available. Problem List No problem information available. Procedures No known history of procedures. Relevant Diagnostic Tests and/or Laboratory Data Laboratory Results Test Date/Time Result Interp. Ref. Range Result Comment White Blood Count November 18, 2017 10:40am 10.1 10^3/uL 4.5-11.0 Red Blood Count November 18, 2017 10:40am 4.59 10^6/uL 3.50-5.40 Hemoglobin November 18, 2017 10:40am 15.0 g/dL 12.0-16.0 Hematocrit November 18, 2017 10:40am 44.2 % 36-48 Mean Corpuscular Volume November 18, 2017 10:40am 96.3 fL 79-99 Mean Corpuscular Hemoglobin November 18, 2017 10:40am 32.6 pg 25.0-34.0 Mean Corpuscular Hemoglobin Concent November 18, 2017 10:40am 33.9 g/dL 31.0 -36.0 Red Cell Distribution Width November 18, 2017 10:40am 13.3 % 11.0-15.0 Platelet Count November 18, 2017 10:40am 209 10^3 uL 130-400 Mean Platelet Volume November 18, 2017 10:40am 9.9 fL 7.0-11.0 Neutrophils (%) (Auto) November 18, 2017 10:40am 67.8 % 43.0-72.0 Lymphocytes (%) (Auto) November 18, 2017 10:40am 24.7 % 15.0-45.0 Monocytes (%) (Auto) November 18, 2017 10:40am 6.1 % 1.0-12.0 Eosinophils (%) (Auto) November 18, 2017 10:40am 0.9 % 0.0-6.0 Basophils (%) (Auto) November 18, 2017 10:40am 0.5 % 0.0-2.0 Neutrophils # (Auto) November 18, 2017 10:40am 6.8 10^3 uL 1.0-8.0 Lymphocytes # (Auto) November 18, 2017 10:40am 2.5 10^3 uL 1.0-3.0 Monocytes # (Auto) November 18, 2017 10:40am 0.6 10^3 uL 0.0-1.0 Eosinophils # (Auto) November 18, 2017 10:40am 0.1 10^3 uL 0.0-0.4 Basophils # (Auto) November 18, 2017 10:40am 0.1 10^3 uL 0.0-0.2 Sodium Level November 18, 2017 10:40am 142 mmol/L 135-150 Potassium Level November 18, 2017 10:40am 4.2 mmol/L 3.4-5.2 Chloride Level November 18, 2017 10:40am 106 mmol/L 100-112 Carbon Dioxide Level November 18, 2017 10:40am 24 mEq/L 18-30 Anion Gap November 18, 2017 10:40am 12 mmol/L High 8-11 Blood Urea Nitrogen November 18, 2017 10:40am 7 mg/dL 5-21 Creatinine November 18, 2017 10:40am 0.79 mg/dL 0.60-1.30 Glomerular Filtration Rate Calc November 18, 2017 10:40am > 60 mL/Min The GFR is not validated for use in drug dosing adjustments. Continue to use estimated creatinine clearance per dosing reference text. Chronic Kidney Disease is defined as either kidney damage or a GFR less than 60 ml/min that persists for at least 3 months. Stage 3=30-59 ml/min Stage 4=15-29 ml/min Stage 5=<15 ml/min Glucose Level November 18, 2017 10:40am 114 mg/dL High 70-99 Hemoglobin A1c November 18, 2017 10:40am 5.6 % Hemoglobin A1C levels are related to [...] of approximately 30 mg/dl. Calcium Level November 18, 2017 10:40am 9.3 mg/dL 8.6-10.5 Total Bilirubin November 18, 2017 10:40am 0.4 mg/dL 0.0-1.2 Aspartate Amino Transf (AST/SGOT) November 18, 2017 10:40am 12 U/L 6-37 Alanine Aminotransferase (ALT/SGPT) November 18, 2017 10:40am 9 U/L Low 12-78 Total Protein November 18, 2017 10:40am 7.5 g/dL 6.4-8.2 Albumin November 18, 2017 10:40am 3.9 g/dL 3.3-4.5 Albumin/Globulin Ratio November 18, 2017 10:40am 1.1 0.7-2.0 Alkaline Phosphatase November 18, 2017 10:40am 88 U/L 50-136 Thyroid Stimulating Hormone (Reflex November 18, 2017 10:40am 1.12 uIU/mL 0.35-4.94 25-Hydroxy Vitamin D Total November 18, 2017 10:40am 17 ng/mL Low 30-100 Advance Directives Advance Directive Response Recorded Date/Time Advance Directive on File? GIVEN November 18, 2017 10:49am Hospital Discharge Instructions No known hospital discharge instructions. Encounters Encounter Facility Location Admit/Visit Date Discharge/Departure Date Attending Provider Departed Referred [facility] October 10:40am November 18, 2017 10:41am Marlene Gr Functional Status No known functional status. Immunizations No known immunizations. Payers Payer Name Policy Type Covered Democrat Covered Democrat Id Relationship Subscriber Subscriber Id [facility] [employer] Walter Castro [id number] Walter Castro [id number] Self Pay Plan of Care No Known Plan of Care Information Social History No known social history. Vital Signs No known vital signs results.
--- OUTSIDE RECORDS SUMMARY | 2019-01-11 11:34 | XMS REPORT | Continuity of Care Document ---
Author Organization Unknown Address Unknown Allergies Active Description Code Type Severity Reaction Onset Reported/Identified Relationship to Patient Clinical Status Yes PNEUMOVAX 23 [id number] N/A N/A Yes NO NAME AVAILABLE 69595 DRUG N/ A N/A Yes CLONAZEPAM [id number] N/A Edema 12/17/2014 Yes PENICILLINS N/A N/A 12/17/2014 Yes VARENICLINE TARTRATE N/A N/A 12/17/2014 Yes PENICILLINS 26 Drug Class High Other 12/09/2017 12/09/2017 Yes PNEUMOCOCCAL POLYSACCHARIDE VACCINE 80781 DRUG INGREDI High Other 2017 Yes VARENICLINE 83446 DRUG INGREDI High Swelling 12/09/2017 12/09/2017 Yes PENICILLINS 26 Drug Class N/A Other 12/09/2017 12/09/2017 Yes VARENICLINE 37253 DRUG INGREDI N/A Swelling 12/09/2017 12/09/2017 Yes LORAZEPAM 24289 DRUG INGREDI N/ A Swelling 12/14/2017 12/14/2017 Yes clonazepam clonazepam Allergy Unknown UNKNOWN 11/27/2018 Yes Penicillins Penicillins Allergy Unknown UNKNOWN 11/27/2018 Yes varenicline varenicline Allergy Unknown UNKNOWN 11/27/2018 Medications Medication Packaging Start Date Stop Date Route Dosage Sig Ranitidine MG 04/09/2016 04/09/2016 150 DAILY PRN Calcium Carbonate MG 04/09/2016 04/09/2016 200 DAILY PRN Pravastatin MG 04/09/2016 04/09/2016 40 BEDTIME Hydrocodone 5MG/Acet 325MG TAB 06/201604/09/2017 1-2 Q6H PRN Methotrexate Sodium ML 04/09/2016 04/09/2016 0.4 WEEKLY MEDICATION RECONCILIATION EACH 06/201604/09/2016 1 ONE Ibuprofen MG 04/09/2016 04/09/2016 200 DAILY PRN Metformin XR MG 04/09/2016 04/09/2016 500 BEDTIME Folic Acid MG 04/09/2016 04/09/2016 1 DAILY Fenofibrate,Micronized MG 201504/09/2016 134 DAILY Naproxen Sodium MG 04/09/2016 04/09/2016 220 DAILY PRN Rosuvastatin calcium 10 MG Oral Tablet [Crestor] 11/11/2016 02/16/2017 1 Q1D Ergocalciferol 45209 UNT Oral Capsule 11/11/2016 11/04/2017 1 Rosuvastatin calcium 20 MG Oral Tablet [Crestor] 02/16/2017 1 Q1D Fenofibrate 145 MG Oral Tablet [Tricor] 02/16/2017 1 Rosuvastatin calcium 20 MG Oral Tablet [Crestor] 06/07/2017 1 Q1D Fenofibrate 145 MG Oral Tablet [Tricor] 06/07/2017 11/04/2017 1 12 HR Bupropion Hydrochloride 150 MG Extended Release Oral Tablet [ Wellbutrin] 11/04/2017 1 BID 24 HR Metformin hydrochloride 500 MG Extended Release Oral Tablet 11/04/2017 1 Rosuvastatin calcium 20 MG Oral Tablet [Crestor] 11/04/2017 1 Q1D Omeprazole 40 MG Delayed Release Oral Capsule 11/18/2017 1 Q1D Ergocalciferol 45034 UNT Oral Capsule 11/18/2017 1 Doxycycline Monohydrate 100 MG Oral Capsule 11/24/2017 12/27/2017 1 BID 12 HR Bupropion Hydrochloride 150 MG Extended Release Oral Tablet [ Wellbutrin] 11/29/2017 1 BID 24 HR Metformin hydrochloride 500 MG Extended Release Oral Tablet 11/29/2017 1 Rosuvastatin calcium 20 MG Oral Tablet [Crestor] 11/29/2017 1 Q1D Omeprazole 40 MG Delayed Release Oral Capsule 11/29/2017 1 Q1D Fluticasone propionate 0.05 MG/ACTUAT Metered Dose Nasal [place] [ Flonase] 11/29/2017 1 Q1D cholecalciferol (vitamin D3) Capsule 05/17/2018 PO 4000 UNIT omega-3 fatty acids Capsule 2017 PO 1000 MG folic acid Tablet 05/17/2018 PO 1 MG metformin Tablet Extended Release 24hr 05/17/2018 PO 500 MG rosuvastatin Tablet 05/17/2018 PO 20 MG bupropion HCl Tablet Sustained-Release 12 Hr 05/17/2018 PO 150 MG ranitidine HCl Tablet 05/17/2018 PO 150 MG loratadine Tablet 05/17/2018 PO 10 MG methotrexate sodium Tablet 2017 PO 10 MG fluticasone [place],Suspension 2017 NASAL 2 SPRAY metformin Tablet Extended Release 24hr 11/23/2018 PO 500 MG bupropion HCl Tablet Extended Release 24 Hr 11/23/2018 PO 150 MG sulfamethoxazole-trimethoprim Tablet 11/23/2018 PO 1 TAB fluticasone propionate [place],Suspension 11/23/2018 NASAL 2 SPRAY KETOROLAC TROMETHAMINE 15 MG/ML IJ SOLN 11/27/2018 12/02/2018 Intravenous 15 EVERY 6 HOURS PRN ACETAMINOPHEN 325 MG PO TABS Oral 650 EVERY 4 HOURS PRN SODIUM CHLORIDE 0.9% IV SOLN FLUSH ONLY 11/27/2018 Intravenous 25 PRN FLUSH VITAMIN D 2000 UNITS PO CAPS 08/2018 Oral 2 DAILY METFORMIN HCL 500 MG PO TABS 08/2018 Oral 500 2 TIMES DAILY WITH MEALS VITAMIN D 1000 UNITS PO TABS 08/2018 Oral 4000 DAILY BUPROPION HCL ER (XL) 150 MG PO TB24 11/28/2018 Oral 150 EVERY MORNING FOLIC ACID 1 MG PO TABS 2018 Oral 1 DAILY ATORVASTATIN CALCIUM 40 MG PO TABS 11/28/2018 Oral 40 DAILY OMEPRAZOLE 20 MG PO CPDR 2018 Oral 40 DAILY PANTOPRAZOLE SODIUM 40 MG PO TBEC 11/28/2018 Oral 40 DAILY FLUTICASONE PROPIONATE 50 MCG/ACT NA SUSP 11/28/2018 Each Nare 1 DAILY ASPIRIN 325 MG PO TABS 2018 Oral 325 DAILY LACTATED RINGERS IV SOLN 2018 Intravenous 20 CONTINUOUS ONDANSETRON HCL 4 MG/2ML IJ SOLN 12/02/2018 Intravenous PRN DEXAMETHASONE SODIUM PHOSPHATE 4 MG/ML IJ SOLN 12/02/2018 Intravenous PRN ROCURONIUM BROMIDE 50 MG/5ML IV SOLN 12/02/2018 Intravenous PRN PROPOFOL 200 MG/20ML IV EMUL 12/2018 Intravenous PRN SUCCINYLCHOLINE CHLORIDE 20 MG/ML IJ SOLN 12/02/2018 Intravenous PRN SUGAMMADEX SODIUM 200 MG/2ML IV SOLN 12/02/2018 Intravenous PRN ONDANSETRON HCL 4 MG/2ML IJ SOLN 12/02/2018 Intravenous 4 ONCE PRN ONDANSETRON 4 MG PO TBDP 2018 Oral 4 ONCE PRN INSULIN ASPART 100 UNIT/ML SC SOLN 12/02/2018 Subcutaneous ONCE PRN GLUCAGON HCL (DIAGNOSTIC) 1 MG IJ SOLR 12/02/2018 Intramuscular 1 PRN GLUCOSE 40 % PO GEL 12/02/2018 Oral 15 PRN DEXTROSE 50 % IV SOLN 12/02/2018 Intravenous 50 PRN Problems Date Dx Coded Attending Type Code Diagnosis Diagnosed By 04/14/2016 Jaime Lafleur DO B02.9 Zoster without complications Lafleur DO, Jaime R 04/14/2016 LafleurJaime torrez DO R07.89 Other chest pain Lafleur DO, Jaime R 04/14/2016 Lafleur DO, Jaime Calzada R94.31 Abnormal electrocardiogram [ECG] [EKG] Jaime Lafleur DO 11/02/2016 F E55.9 Vitamin D deficiency, unspecified 11/02/2016 F E78.2 Mixed hyperlipidemia 11/02/2016 F F17.210 Nicotine dependence, cigarettes, uncomplicated 11/02/2016 F J30.1 Allergic rhinitis due to pollen 11/02/2016 F L40.9 Psoriasis, unspecified 11/02/2016 F M54.31 Sciatica, right side 11/02/2016 F R53.83 Other fatigue 11/02/2016 F R73.01 Impaired fasting glucose 11/02/2016 F Z00.00 Encounter for general adult medical examination without abnormal findings 11/02/2016 F Z01.411 Encounter for gynecological examination (general) (routine) with abnormal findings 11/02/2016 F Z12.31 Encounter for screening mammogram for malignant neoplasm of breast 11/04/2016 F Z23 Encounter for immunization 11/11/2016 F E55.9 Vitamin D deficiency, unspecified 11/11/2016 F E78.2 Mixed hyperlipidemia 11/11/2016 F R73.01 Impaired fasting glucose 11/11/2016 F R87.619 Unspecified abnormal cytological findings in specimens from cervix uteri 11/19/2016 Marlene Gr F Z12.31 Encounter for screening mammogram for malignant neoplasm of breast Marlene Gr 11/21/2016 F R87.622 Low grade squamous intraepithelial lesion on cytologic smear of vagina (LGSIL) 02/09/2017 F Z11.1 Encounter for screening for respiratory tuberculosis 02/12/2017 F Z11.1 Encounter for screening for respiratory tuberculosis 11/18/2017 Marlene Gr F Z00.00 Encounter for general adult medical examination without abnormal findings 11/18/2017 Marlene Gr Z12.31 Encounter for screening mammogram for malignant neoplasm of breast 11/18/2017 Marlene Gr R53.83 Other fatigue 11/18/2017 Marlene Gr E55.9 Vitamin D deficiency, unspecified 11/18/2017 Marlene Gr G56.03 Carpal tunnel syndrome, bilateral upper limbs 11/18/2017 Marlene Gr K21.9 Gastro-esophageal reflux disease without esophagitis 11/18/2017 Marlene Gr F17.200 Nicotine dependence, unspecified, uncomplicated 11/18/2017 Marlene Gr E78.2 Mixed hyperlipidemia 11/18/2017 Marlene Gr R73.01 Impaired fasting glucose 11/18/2017 Marlene Gr R87.619 Unspecified abnormal cytological findings in specimens from cervix uteri 11/18/2017 Marlene Gr L98.9 Disorder of the skin and subcutaneous tissue, unspecified 11/22/2017 F Z11.1 Encounter for screening for respiratory tuberculosis 11/24/2017 Marlene Gr Z11.1 Encounter for screening for respiratory tuberculosis 11/24/2017 Marlene Gr L98.9 Disorder of the skin and subcutaneous tissue, unspecified 11/24/2017 Marlene Gr L03.90 Cellulitis, unspecified 11/29/2017 F Z48.02 Encounter for removal of sutures 11/29/2017 F E78.2 Mixed hyperlipidemia 11/29/2017 F J30.1 Allergic rhinitis due to pollen 11/29/2017 F R73.01 Impaired fasting glucose 11/29/2017 F K21.9 Gastro- esophageal reflux disease without esophagitis 11/29/2017 F F17.210 Nicotine dependence, cigarettes, uncomplicated 12/14/2017 V R10.2 Pelvic and perineal pain 12/27/2017 Larry Francis Z12.11 Encounter for screening for malignant neoplasm of colon 12/30/2017 Larry Francis 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 12/30/2017 Larry Francis L82.1 Other seborrheic keratosis 12/30/2017 Larry Francis D48.5 Neoplasm of uncertain behavior of skin 01/03/2018 Larry Francis 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 01/03/2018 Larry Francis L82.1 Other seborrheic keratosis 11/23/2018 Marlene Gr, SAT INSTRUCTOR W E55.9 Vitamin D deficiency, unspecified Marlene rG, SAT INSTRUCTOR 11/23/2018 Marlene Gr, SAT INSTRUCTOR W E78.2 Mixed hyperlipidemia Marlene Gr, SAT INSTRUCTOR 11/23/2018 Marlene Gr, SAT INSTRUCTOR W F32.9 Major depressive disorder, single episode, unspecified Marlene rG, SAT INSTRUCTOR 11/23/2018 Marlene Gr, SAT INSTRUCTOR W I10 Essential (primary) hypertension Marlene Gr, SAT INSTRUCTOR 11/23/2018 Marlene Gr, SAT INSTRUCTOR W R53.83 Other fatigue Marlene Gr, SAT INSTRUCTOR 11/23/2018 Marlene Gr, SAT INSTRUCTOR W R73.01 Impaired fasting glucose Marlene Gr, SAT INSTRUCTOR 11/23/2018 Marlene Gr, SAT INSTRUCTOR W Z00.00 Encounter for general adult medical examination without abno Marlene Gr, SAT INSTRUCTOR 11/23/2018 Marlene Gr, SAT INSTRUCTOR W E55.9 Vitamin D deficiency, unspecified Marlene Gr, SAT INSTRUCTOR 11/23/2018 Marlene Gr, SAT INSTRUCTOR W E78.2 Mixed hyperlipidemia Marlene Gr, SAT INSTRUCTOR 11/23/2018 Marlene Gr, SAT INSTRUCTOR W F32.9 Major depressive disorder, single episode, unspecified Marlene Gr, SAT INSTRUCTOR 11/23/2018 Marlene Gr, SAT INSTRUCTOR W I10 Essential (primary) hypertension Marlene Gr, SAT INSTRUCTOR 11/23/2018 Marlene Gr, SAT INSTRUCTOR W R53.83 Other fatigue Marlene Gr, SAT INSTRUCTOR 11/23/2018 Marlene Gr, SAT INSTRUCTOR W R73.01 Impaired fasting glucose Marlene Gr, SAT INSTRUCTOR 11/23/2018 Marlene Gr, SAT INSTRUCTOR W Z00.00 Encounter for general adult medical examination without abno Marlene Gr, SAT INSTRUCTOR 11/28/2018 ALEXANDER ESPINOZA, AMER F E66.9 Obesity, unspecified 11/28/2018 ALEXANDER ESPINOZA, AMER F E78.5 Hyperlipidemia, unspecified 11/28/2018 ALEXANDER ESPINOZA, AMER F K21.9 Gastro-esophageal reflux disease without esophagitis 11/28/2018 ALEXANDER CARMONABERNIE, AMER F L40.50 Arthropathic psoriasis, unspecified (HCC) 11/28/2018 ALEXANDER CARMONAUSA, AMER F R07.89 Other chest pain 11/28/2018 ALEXANDER CARMONABERNIE, AMER F R73.03 Prediabetes 11/28/2018 ALEXANDER CARMONABERNIE, AMER F R91.8 Other nonspecific abnormal finding of lung field 11/28/2018 ALEXANDER CARMONABERNIE, AMER F 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 11/28/2018 ALEXANDER CARMONABERNIE, AMER F 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 11/28/2018 ALEXANDER ESPINOZA, AMER F Z87.891 Personal history of nicotine dependence 11/28/2018 ALEXANDER CARMONABERNIE, AMER F Z88.0 Allergy status to penicillin 11/28/2018 ALEXANDER CARMONABERNIE, AMER F Z90.49 Acquired absence of other specified parts of digestive tract 11/28/2018 ALSBRITTANY CARMONABERNIE, AMER F 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 11/28/2018 Marlene Gr, SAT INSTRUCTOR W Z12.31 Encounter for screening mammogram for malignant neoplasm of Marlene Gr, SAT INSTRUCTOR 11/29/2018 Marlene Gr, SAT INSTRUCTOR W Z12.31 Encounter for screening mammogram for malignant neoplasm of Marlene Gr, SAT INSTRUCTOR 12/02/2018 BLAINE RUSSELL S 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) 12/02/2018 BLAINE RUSSELL S F E78.49 Other hyperlipidemia 12/02/2018 TAHABLAINE S F R07.89 Other chest pain 12/02/2018 BLAINE RUSSELL S F R59.0 Localized enlarged lymph nodes 12/02/2018 BLANIE RUSSELL R73.03 Prediabetes 12/02/2018 BLAINE RUSSELL R91.8 Other nonspecific abnormal finding of lung field 12/02/2018 BLAINE RUSSELL Z79.84 correction (current) use of oral hypoglycemic drugs 12/02/2018 KATRINMINNA VALLADARES S F 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 12/02/2018 BLAINE RUSSELL Z87.891 Personal history of nicotine dependence Procedures Code Description [place] [address] ROUTINE VENIPUNCTURE 11/09/2016 82296 GENERAL HEALTH PANEL 11/09/2016 27436 URINALYSIS, AUTO, W/O SCOPE 11/09/2016 12299 ASSAY OF VITAMIN D 11/09/2016 85779 GLYCOSYLATED HEMOGLOBIN TEST 11/09/2016 75625 PREV VISIT, EST, AGE 40-64 11/09/2016 03601 IMMUNIZATION ADMIN 11/11/2016 62088 TDAP VACCINE >7 IM 11/11/2016 69052 OFFICE/OUTPATIENT VISIT, EST 11/16/2016 83851 BX/CURETT OF CERVIX W/SCOPE 11/25/2016 44925 TB INTRADERMAL TEST 02/09/2017 74642 ROUTINE VENIPUNCTURE 02/12/2017 29999 COMPREHEN METABOLIC PANEL 02/12/2017 05632 GLYCOSYLATED HEMOGLOBIN TEST 02/12/2017 12576 ASSAY OF BLOOD LIPOPROTEIN 02/12/2017 40609 ASSAY OF TRIGLYCERIDES 02/12/2017 21776 COMPLETE CBC W/AUTO DIFF WBC 02/12/2017 8001 NO CHARGE 02/12/2017 11276 ROUTINE VENIPUNCTURE 06/03/2017 84178 COMPREHEN METABOLIC PANEL 06/03/2017 41299 GLYCOSYLATED HEMOGLOBIN TEST 06/03/2017 63933 ROUTINE VENIPUNCTURE 11/18/2017 01777 GENERAL HEALTH PANEL 11/18/2017 51055 URINALYSIS, AUTO, W/O SCOPE 11/18/2017 59545 ASSAY OF VITAMIN D 11/18/2017 22185 GLYCOSYLATED HEMOGLOBIN TEST 11/18/2017 13887 PREV VISIT, EST, AGE 40-64 11/18/2017 56649 TB INTRADERMAL TEST 11/22/2017 46221 THER/PROPH/DIAG INJ, SC/IM 11/22/2017 31639 OFFICE/OUTPATIENT VISIT, EST 11/24/2017 42647 POSTOP FOLLOW-UP VISIT 11/29/2017 71422 EXC TR-EXT B9+MAHI 1.1-2 CM 12/27/2017 73598 EXC TR-EXT MLG+MAHI 1.1-2 CM 12/27/2017 14137 INTMD WND REPAIR S/TR/EXT 12/27/2017 8001 NO CHARGE 12/27/2017 26578 POSTOP FOLLOW-UP VISIT 01/03/2018 [id number] Extraction of Thorax Lymphatic, Endo, Diagn 12/02/2018 Results Test Result Range HEPATITIS ACUTE PANEL - 01/16/16 08:56 HEPATITIS A IGM NON-REACTIVE NON-REACTIVE HEPATITIS B CORE ANTIBODY IGM NON-REACTIVE NON-REACTIVE HEPATITIS B TREVER NON-REACTIVE NON-REACTIVE HEPATITIS C VIR NON-REACTIVE NON-REACTIVE SIGNAL TO CUT O 0.02 <1.00 HCV RNA,QUANTI Test not performed COMPLETE BLOOD COUNT W/DIFF - 01/16/16 08:56 HEMOGLOBIN 16.0 g/dl 12.0-16.0 PLATELET COUNT 212 10 3/uL 130-400 WHITE BLOOD CELL COUNT 7.9 10 3/uL 4.5-11.0 NEUTROPHIL% 53.8 % 43.0-72.0 LYMPHOCYTE% 37.5 % 15.0-45.0 MONOCYT% 6.8 % 1.0-12.0 EOSINOPHIL% 1.5 % 0.0-6.0 BASOPHIL% 0.4 % 0.0-2.0 NEUTROPHIL# 4.2 10 3/uL 1.0-8.0 LYMPHOCYTE# 2.9 10 3/uL 1.0-3.0 MONOCYTE# 0.5 10 3/uL 0.0-1.0 EOSINOPHIL# 0.1 10 3/uL 0.0-0.4 BASOPHIL# 0.0 10 3/uL 0.0-0.2 RED BLOOD CELL 4.94 10 6/uL 3.50-5.40 HEMATOCRIT 49.1 % 36-48 MEAN CORPUSCULAR VOLUME 99.3 fL 79-99 MEAN CORPUSCULAR HEMOGLOBIN 32.4 pg 25.0-34.0 MEAN CELL HEMOGLOBIN CONC. 32.7 g/dL 31.0-36.0 RED CELL DISTRIBUTION WIDTH 13.0 % 11.0-15.0 MEAN PLATELET VOLUME 10.5 fL 7.0-11.0 RHEUMATOID FACTOR - 01/16/16 08:56 RHEUMATOID FACTOR Negative Negative SEDRATE - 01/16/16 08:56 SEDRATE 16 mm/Hr 0-20 HEMOGLOBIN A1C - 01/16/16 08:56 HEMOGLOBIN A1C 5.3 % 4.5-6.2 COMP METABOLIC PROFILE - 01/16/16 08:56 ALBUMIN 3.9 g/dl 3.3-4.5 ALKALINE PHOSPHATASE 84 U/L 46-116 ANION GAP 10 mmol/L 8-16 BILIRUBIN TOTAL 0.3 mg/dl 0.0-1.2 GLUCOSE 104 mg/dl 70-99 BUN 10 mg/dl 5-21 CALCIUM 9.1 mg/dl 8.6-10.5 CHLORIDE 106 mmol/L 100-112 CARBON DIOXIDE 29 meq/L 21-33 AST/GOT 12 U/L 6-37 ALT/GPT 19 U/L 12-78 POTASSIUM 4.4 mmol/L 3.4-5.2 SODIUM 145 mmol/L 135-150 TOTAL PROTEIN 6.9 g/dl 6.4-8.2 CREATININE 0.85 mg/dl 0.60-1.30 GFR ESTIMATE > 60 mL/Min > 60 AG RATIO 1.3 0.7-2.0 URIC ACID - 01/16/16 08:56 URIC ACID 5.3 mg/dl 2.4-6.4 TRIGLYCERIDES - 01/16/16 08:56 TRIGLYCERIDES 310 mg/dl <150 LDL CHOLESTEROL DIRECT - 01/16/16 08:56 LDL CHOLESTEROL DIRECT 154 mg/dL 0-100 CARDIO C-REACTIVE PROTEIN - 01/16/16 08:56 CARDIO C-REACTIVE PROTEIN 5.43 mg/L 0-3.0 EMI SCREEN W/RFLX TO TITER,IFA - 01/16/16 08:56 EMI SCREEN NEGATIVE NEGATIVE COMPLETE BLOOD COUNT - 04/09/16 16:03 HEMOGLOBIN 15.4 g/dl 12.0-16.0 PLATELET COUNT 220 10 3/uL 130-400 WHITE BLOOD CELL COUNT 8.0 10 3/uL 4.5-11.0 RED BLOOD CELL 4.81 10 6/uL 3.50-5.40 HEMATOCRIT 46.1 % 36-48 MEAN CORPUSCULAR VOLUME 95.9 fL 79-99 MEAN CORPUSCULAR HEMOGLOBIN 32.0 pg 25.0-34.0 MEAN CELL HEMOGLOBIN CONC. 33.4 g/dL 31.0-36.0 RED CELL DISTRIBUTION WIDTH 13.4 % 11.0-15.0 MEAN PLATELET VOLUME 9.9 fL 7.0-11.0 COMP METABOLIC PROFILE - 04/09/16 16:03 ALBUMIN 4.0 g/dl 3.3-4.5 ALKALINE PHOSPHATASE 67 U/L 46-116 ANION GAP 10 mmol/L 8-16 BILIRUBIN TOTAL 0.4 mg/dl 0.0-1.2 GLUCOSE 99 mg/dl 70-99 BUN 8 mg/dl 5-21 CALCIUM 9.0 mg/dl 8.6-10.5 CHLORIDE 105 mmol/L 100-112 CARBON DIOXIDE 27 meq/L 21-33 AST/GOT 17 U/L 6-37 ALT/GPT 19 U/L 12-78 POTASSIUM 3.9 mmol/L 3.4-5.2 SODIUM 142 mmol/L 135-150 TOTAL PROTEIN 7.2 g/dl 6.4-8.2 CREATININE 0.85 mg/dl 0.60-1.30 GFR ESTIMATE > 60 mL/Min > 60 AG RATIO 1.3 0.7-2.0 COMPLETE BLOOD COUNT W/DIFF - 11/02/16 15:19 HEMOGLOBIN 15.6 g/dl 12.0-16.0 PLATELET COUNT 216 10 3/uL 130-400 WHITE BLOOD CELL COUNT 8.7 10 3/uL 4.5-11.0 NEUTROPHIL% 62.6 % 43.0-72.0 LYMPHOCYTE% 28.3 % 15.0-45.0 MONOCYT% 7.2 % 1.0-12.0 EOSINOPHIL% 1.3 % 0.0-6.0 BASOPHIL% 0.6 % 0.0-2.0 NEUTROPHIL# 5.4 10 3/uL 1.0-8.0 LYMPHOCYTE# 2.5 10 3/uL 1.0-3.0 MONOCYTE# 0.6 10 3/uL 0.0-1.0 EOSINOPHIL# 0.1 10 3/uL 0.0-0.4 BASOPHIL# 0.1 10 3/uL 0.0-0.2 RED BLOOD CELL 4.87 10 6/uL 3.50-5.40 HEMATOCRIT 46.3 % 36-48 MEAN CORPUSCULAR VOLUME 95.0 fL 79-99 MEAN CORPUSCULAR HEMOGLOBIN 32.0 pg 25.0-34.0 MEAN CELL HEMOGLOBIN CONC. 33.7 g/dL 31.0-36.0 RED CELL DISTRIBUTION WIDTH 12.6 % 11.0-15.0 MEAN PLATELET VOLUME 10.1 fL 7.0-11.0 HEMOGLOBIN A1C - 11/02/16 15:19 HEMOGLOBIN A1C 5.7 % 4.5-6.2 VITAMIN D, 25 HYDROXY - 11/02/16 15:19 VITAMIN D 25-HY <4 ng/mL See Below VITAMIN D 25-HY 14 ng/mL 30-100 VITAMIN D 25-HY 14 ng/mL See Below COMPLETE BLOOD COUNT W/DIFF - 02/12/17 07:56 HEMOGLOBIN 16.3 g/dl 12.0-16.0 PLATELET COUNT 203 10 3/uL 130-400 WHITE BLOOD CELL COUNT 8.7 10 3/uL 4.5-11.0 NEUTROPHIL% 56.5 % 43.0-72.0 LYMPHOCYTE% 35.3 % 15.0-45.0 MONOCYT% 6.2 % 1.0-12.0 EOSINOPHIL% 1.5 % 0.0-6.0 BASOPHIL% 0.5 % 0.0-2.0 NEUTROPHIL# 4.9 10 3/uL 1.0-8.0 LYMPHOCYTE# 3.1 10 3/uL 1.0-3.0 MONOCYTE# 0.5 10 3/uL 0.0-1.0 EOSINOPHIL# 0.1 10 3/uL 0.0-0.4 BASOPHIL# 0.0 10 3/uL 0.0-0.2 RED BLOOD CELL 5.03 10 6/uL 3.50-5.40 HEMATOCRIT 48.4 % 36-48 MEAN CORPUSCULAR VOLUME 96.2 fL 79-99 MEAN CORPUSCULAR HEMOGLOBIN 32.4 pg 25.0-34.0 MEAN CELL HEMOGLOBIN CONC. 33.6 g/dL 31.0-36.0 RED CELL DISTRIBUTION WIDTH 13.1 % 11.0-15.0 MEAN PLATELET VOLUME 10.3 fL 7.0-11.0 COMP METABOLIC PROFILE - 02/12/17 07:56 ALBUMIN 3.7 g/dL 3.3-4.5 ALKALINE PHOSPHATASE 81 U/L 50-136 ANION GAP 12 mmol/L 8-16 BILIRUBIN TOTAL 0.4 mg/dL 0.0-1.2 GLUCOSE 112 mg/dL 70-99 BUN 10 mg/dL 5-21 CALCIUM 9.4 mg/dL 8.6-10.5 CHLORIDE 105 mmol/L 100-112 CARBON DIOXIDE 24 mg/dL 18-30 AST/GOT 11 U/L 6-37 ALT/GPT < 10 U/L 12-78 POTASSIUM 4.0 mmol/L 3.4-5.2 SODIUM 141 mmol/L 135-150 TOTAL PROTEIN 7.3 g/dL 6.4-8.2 CREATININE 0.88 mg/dL 0.60-1.30 GFR ESTIMATE > 60 mL/Min > 60 AG RATIO 1.0 0.7-2.0 TRIGLYCERIDES - 02/12/17 07:56 TRIGLYCERIDES 457 mg/dL < 150 LDL CHOLESTEROL DIRECT - 02/12/17 07:56 LDL CHOLESTEROL DIRECT 122 mg/dL < 100 HEMOGLOBIN A1C - 02/12/17 07:56 HEMOGLOBIN A1C 5.4 % < 6.5 HEMOGLOBIN A1C - 06/03/17 08:05 HEMOGLOBIN A1C 5.4 % < 6.5 COMP METABOLIC PROFILE - 06/03/17 08:05 ALBUMIN 4.0 g/dL 3.3-4.5 ALKALINE PHOSPHATASE 59.0 U/L 50-136 ANION GAP 14 mmol/L 8-16 BILIRUBIN TOTAL 0.4 mg/dL 0.0-1.2 GLUCOSE 101 mg/dL 70-99 BUN 11 mg/dL 5-21 CALCIUM 9.5 mg/dL 8.6-10.5 CHLORIDE 107 mmol/L 100-112 CARBON DIOXIDE 22 mEq/L 18-30 AST/GOT 17.0 U/L 6-37 ALT/GPT 15.0 U/L 12-78 POTASSIUM 4.1 mmol/L 3.4-5.2 SODIUM 143 mmol/L 135-150 TOTAL PROTEIN 7.4 g/dL 6.4-8.2 CREATININE 0.95 mg/dL 0.60-1.30 GFR ESTIMATE > 60 mL/Min > 60 AG RATIO 1.2 0.7-2.0 COMPLETE BLOOD COUNT W/DIFF - 11/18/17 10:40 HEMOGLOBIN 15.0 g/dL 12.0-16.0 PLATELET COUNT 209 10 3 uL 130-400 WHITE BLOOD CELL COUNT 10.1 10 3/uL 4.5-11.0 NEUTROPHIL% 67.8 % 43.0-72.0 LYMPHOCYTE% 24.7 % 15.0-45.0 MONOCYT% 6.1 % 1.0-12.0 EOSINOPHIL% 0.9 % 0.0-6.0 BASOPHIL% 0.5 % 0.0-2.0 NEUTROPHIL# 6.8 10 3 uL 1.0-8.0 LYMPHOCYTE# 2.5 10 3 uL 1.0-3.0 MONOCYTE# 0.6 10 3 uL 0.0-1.0 EOSINOPHIL# 0.1 10 3 uL 0.0-0.4 BASOPHIL# 0.1 10 3 uL 0.0-0.2 HEMATOCRIT 44.2 % 36-48 MEAN CORPUSCULAR VOLUME 96.3 fL 79-99 MEAN CORPUSCULAR HEMOGLOBIN 32.6 pg 25.0-34.0 MEAN CELL HEMOGLOBIN CONC. 33.9 g/dL 31.0-36.0 RED CELL DISTRIBUTION WIDTH 13.3 % 11.0-15.0 MEAN PLATELET VOLUME 9.9 fL 7.0-11.0 Red Blood Count 4.59 10 6/uL 3.50-5.40 Hemoglobin A1C - 11/18/17 10:40 HEMOGLOBIN A1C 5.6 % < 6.5 Comprehensive Metabolic Panel - 11/18/17 10:40 BILIRUBIN TOTAL 0.4 mg/dL 0.0-1.2 BUN 7 mg/dL 5-21 CHLORIDE 106 mmol/L 100-112 CARBON DIOXIDE 24 mEq/L 18-30 POTASSIUM 4.2 mmol/L 3.4-5.2 SODIUM 142 mmol/L 135-150 GFR ESTIMATE > 60 mL/Min > 60 Anion Gap 12 mmol/L 8-11 Creatinine 0.79 mg/dL 0.60-1.30 Glucose 114 mg/dL 70-99 Calcium 9.3 mg/dL 8.6-10.5 Aspartate Amino Transferase 12 U/L 6-37 Alanine Aminotransferase 9 U/L 12-78 Total Protein 7.5 g/dL 6.4-8.2 Albumin 3.9 g/dL 3.3-4.5 Albumin/Globulin Ratio 1.1 0.7-2.0 Alkaline Phosphatase 88 U/L 50-136 TSH w/Reflex Free T4 - 11/18/17 10:40 TSH - REFLEX T4 1.12 uIU/mL 0.35-4.94 Vitamin D, Total - 11/18/17 10:40 VITAMIN D, 25 HYDROXY 17 ng/mL 30-100 SURGICAL PATHOLOGY STUDY - 12/27/17 00:00 Microscopic Description NRG Diagnosis NRG SPECIMEN(S) RECEIVED NRG GROSS DESCRIPTION NRG COMMENTS NRG CLINICAL INFORMATION NR Hemoglobin A1C - 05/17/18 09:11 HEMOGLOBIN A1C 5.7 % < 6.5 Comprehensive Metabolic Panel - 05/17/18 09:11 BILIRUBIN TOTAL 0.4 mg/dL 0.0-1.2 BUN 8 mg/dL 5-21 CHLORIDE 107 mmol/L 100-112 CARBON DIOXIDE 26 mEq/L 18-30 POTASSIUM 4.1 mmol/L 3.4-5.2 SODIUM 142 mmol/L 135-150 GFR ESTIMATE > 60 mL/Min > 60 Anion Gap 9 mmol/L 8-11 Creatinine 0.81 mg/dL 0.60-1.30 Glucose 107 mg/dL 70-99 Calcium 9.3 mg/dL 8.6-10.5 Aspartate Amino Transferase 11 U/L 6-37 Alanine Aminotransferase 10 U/L 12-78 Total Protein 7.1 g/dL 6.4-8.2 Albumin 3.9 g/dL 3.3-4.5 Albumin/Globulin Ratio 1.2 0.7-2.0 Alkaline Phosphatase 96 U/L 50-136 Triglycerides - 05/17/18 09:11 TRIGLYCERIDES 185 mg/dL < 150 LDL Cholesterol, Direct - 05/17/18 09:11 LDL Cholesterol, Direct 61 mg/dL < 100 Lipoprotein Fractionation, CIQ - 11/23/18 10:38 LP FRACTIONS CO See Separate Report [facility] LDL PARTICLE NU 1335 nmol/L 732-2035 LDL SMALL 339 nmol/L 75-452 LDL MEDIUM 285 nmol/L 122-498 HDL LARGE 5300 nmol/L [id number] LDL PATTERN B Pattern A LDL PEAK SIZE 212.6 Angstrom > GZ=389.4 Lipid Panel, Cardio IQ - 11/23/18 10:38 Cholesterol, Cardio IQ 209 mg/dL <200 Triglycerides, Cardio IQ 331 mg/dL <150 HDL Cholesterol, Cardio IQ 58 mg/dL >50 Chol/HDL Ratio, Cardio IQ 3.6 calc <5.0 LDL Calculated, Cardio IQ 107 mg/dL <100 Non HDL Calculated, Cardio IQ 151 <130 Complete Blood Count Man Dif - 11/23/18 10:38 HEMOGLOBIN 15.3 g/dL 12.0-16.0 PLATELET COUNT 218 10 3 uL 130-400 WHITE BLOOD CELL COUNT 7.2 10 3/uL 4.5-11.0 HEMATOCRIT 44.5 % 36-48 MEAN CORPUSCULAR VOLUME 98.9 fL 79-99 MEAN CORPUSCULAR HEMOGLOBIN 33.9 pg 25.0-34.0 MEAN CELL HEMOGLOBIN CONC. 34.3 g/dL 31.0-36.0 RED CELL DISTRIBUTION WIDTH 13.2 % 11.0-15.0 MEAN PLATELET VOLUME 10.1 fL 7.0-11.0 Red Blood Count 4.49 10 6/uL 3.50-5.40 Neutrophils % (Manual) 70.0 % 50-65 Band Neutrophils %(Manual) 1.0 % 0-10 Lymphocytes % (Manual) 19.0 % 15-45 Monocytes % (Manual) 10.0 % 0-10 Neutrophils # (Manual) 5.1 # 1.0-8.0 Lymphocytes # (Manual) 1.4 # 1.0-3.0 Monocytes # (Manual) 0.7 # 0.0-1.0 Hemoglobin A1C - 11/23/18 10:38 HEMOGLOBIN A1C 5.8 % < 6.5 Comprehensive Metabolic Panel - 11/23/18 10:38 BILIRUBIN TOTAL 0.3 mg/dL 0.0-1.2 BUN 10 mg/dL 5-21 CHLORIDE 106 mmol/L 100-112 CARBON DIOXIDE 27 mEq/L 18-30 POTASSIUM 3.9 mmol/L 3.4-5.2 SODIUM 143 mmol/L 135-150 GFR ESTIMATE > 60 mL/Min > 60 Anion Gap 10 mmol/L 8-11 Creatinine 0.79 mg/dL 0.60-1.30 Glucose 105 mg/dL 70-99 Calcium 9.8 mg/dL 8.6-10.5 Aspartate Amino Transferase 11 U/L 6-37 Alanine Aminotransferase < 8 U/L 12-78 Total Protein 7.7 g/dL 6.4-8.2 Albumin 4.2 g/dL 3.3-4.5 Albumin/Globulin Ratio 1.2 0.7-2.0 Alkaline Phosphatase 85 U/L 50-136 TSH w/Reflex Free T4 - 11/23/18 10:38 TSH - REFLEX T4 0.636 uIU/mL 0.35-4.94 Vitamin D, Total - 11/23/18 10:38 VITAMIN D, 25 HYDROXY 19 ng/mL 30-100 Urinalysis w/o Microscopic - 11/23/18 14:09 GLUCOSE Negative Negative KETONE Negative Negative SPECIFIC GRAVIT 1.015 1.010-1.025 Color, Urine Yellow Yellow pH, Urine 7.0 4.5 - 7.5 Bilirubin, Urine Negative Negative Urobilinogen, Urine 0.2 <=1.0 Appearance, Urine Clear Clear Protein, Urine Negative Neg-Trace Blood, Urine Negative Negative Leukocyte Esterase,Urine Negative Negative Nitrite, Urine Negative Negative Antibiotic Stewardship Comment [facility] COMPLETE BLOOD COUNT W/DIFF - 11/27/18 15:21 HEMOGLOBIN 14.5 g/dL 12.0-16.0 PLATELET COUNT 179 10 3 uL 130-400 WHITE BLOOD CELL COUNT 6.0 10 3/uL 4.5-11.0 NEUTROPHIL% 71.5 % 43.0-72.0 LYMPHOCYTE% 15.7 % 15.0-45.0 MONOCYT% 8.8 % 1.0-12.0 EOSINOPHIL% 3.6 % 0.0-6.0 BASOPHIL% 0.4 % 0.0-2.0 NEUTROPHIL# 4.3 10 3 uL 1.0-8.0 LYMPHOCYTE# 0.9 10 3 uL 1.0-3.0 MONOCYTE# 0.5 10 3 uL 0.0-1.0 EOSINOPHIL# 0.2 10 3 uL 0.0-0.4 BASOPHIL# 0.0 10 3 uL 0.0-0.2 HEMATOCRIT 41.9 % 36-48 MEAN CORPUSCULAR VOLUME 98.9 fL 79-99 MEAN CORPUSCULAR HEMOGLOBIN 34.2 pg 25.0-34.0 MEAN CELL HEMOGLOBIN CONC. 34.6 g/dL 31.0-36.0 RED CELL DISTRIBUTION WIDTH 13.2 % 11.0-15.0 MEAN PLATELET VOLUME 9.6 fL 7.0-11.0 Red Blood Count 4.24 10 6/uL 3.50-5.40 Comprehensive Metabolic Panel - 11/27/18 15:21 BILIRUBIN TOTAL 0.2 mg/dL 0.0-1.2 BUN 9 mg/dL 5-21 CHLORIDE 104 mmol/L 100-112 CARBON DIOXIDE 23 mEq/L 18-30 POTASSIUM 4.1 mmol/L 3.4-5.2 SODIUM 139 mmol/L 135-150 GFR ESTIMATE 57 mL/Min > 60 Anion Gap 12 mmol/L 8-11 Creatinine 1.02 mg/dL 0.60-1.30 Glucose 131 mg/dL 70-99 Calcium 9.6 mg/dL 8.6-10.5 Aspartate Amino Transferase 14 U/L 6-37 Alanine Aminotransferase 14 U/L 12-78 Total Protein 7.3 g/dL 6.4-8.2 Albumin 3.8 g/dL 3.3-4.5 Albumin/Globulin Ratio 1.1 0.7-2.0 Alkaline Phosphatase 98 U/L 50-136 Troponin I (x1) - 11/27/18 15:21 TROPONIN-I ONLY < 0.01 ng/mL 0.00-0.05 B-Type Natriuretic Peptide - 11/27/18 15:21 B-Type Natriuretic Peptide 10.4 pg/mL < 100 Procalcitonin - 11/27/18 15:21 Procalcitonin 0.05 ng/mL 0.00-0.10 D-Dimer - 11/27/18 15:21 D-Dimer 0.88 ug/mL < 0.50 Urinalysis Cult if Indicated - 11/27/18 18:35 GLUCOSE Negative Negative KETONE Negative Negative SPECIFIC GRAVIT 1.010 1.010-1.025 NITRITE Negative Negative BLOOD Negative Negative Color, Urine Yellow Yellow Appearance, Urine Clear Clear pH, Urine 6.0 4.5 - 7.5 Protein, Urine Negative Neg-Trace Bilirubin, Urine Negative Negative Urobilinogen, Urine 0.2 <=1.0 Leukocyte Esterase,Urine Negative Negative Culture Indicated,Urine Not Indicated NRG Antibiotic Stewardship Comment NRG Resp Pathogen Panel - In House - 11/27/18 18:35 Resp Pathogen Panel - In House NRG Adenovirus: Not Detected NRG Coronavirus 229E: Not Detected NRG Coronavirus HKU1: Not Detected NRG Coronavirus NL63: Not Detected NRG Coronavirus OC43: Not Detected NRG Human Metapneumovirus: Not Detected NRG Human Rhino/Enterovirus: Not Detected NRG Influenza A: Not Detected NRG Influenza B: Not Detected NRG Parainfluenza Virus 1: Not Detected NRG Parainfluenza Virus 2: Not Detected NRG Parainfluenza Virus 3: Not Detected NRG Parainfluenza Virus 4: Not Detected NRG Resp. Syncytial Virus: Not Detected NRG Bordetella pertussis: Not Detected NRG Chlamydophila pneumoniae: Not Detected NRG Mycoplasma pneumoniae: Not Detected NRG PANEL METHOD Testing performed using FilmArray PCR NRG Bordetella parapertussis: Not Detected NRG HEMOGLOBIN A1C - 11/28/18 07:34 HEMOGLOBIN A1C 6.0 % <5.7 PROTIME-INR - 11/28/18 07:34 INR 0.99 INR PROTHROMBIN TIME 13.1 sec. 11.8-14.8 HCG, SERUM, QUALITATIVE - 11/28/18 07:34 HCG SERUM(QUAL) Negative mIU/mL Negative TROPONIN I - 11/28/18 09:42 TROPONIN I < ng/mL 0.000-0.040 LIPID PANEL - 11/28/18 13:34 CHOLESTEROL 175 mg/dL <=200 HDL CHOLESTEROL 37 mg/dL 40-90 LDL CHOLESTEROL 93 mg/dL NON-HDL CHOLESTEROL 138 mg/dL 0-129 TRIGLYCERIDE 224 mg/dL 0-149 PERFORM POINT OF CARE GLUCOSE - 12/02/18 12:33 BEDSIDE GLUCOSE 107 mg/dL 74-106 CYTOLOGY BODY, PLEURAL, ETC - 12/02/18 15:45 [id number] Result to be found under pathology section PERFORM POINT OF CARE GLUCOSE - 12/02/18 16:12 BEDSIDE GLUCOSE 107 mg/dL 74-106 Radiology Report from [id number] on 11/29/2017 11:51:00 [facility] [address] [place] [address] Mammography Report Signed Patient: Cary Olsen MR#: [id number] : 1965 Acct: [id number] Age/Sex: 52 / F ADM Date: 11/29/17 Loc: RAD Attending Provider : Marlene Gr APRN Ordering Provider: Marlene Gr Birad: 1 Negative Date of Service: 11/29/17 Follow Up: 1 Year Follow-Up Procedure(s) : MM screening mammo BI Accession Number(s): [id number] EXAM: Bilateral Digital Screening Mammogram INDICATION: Routine screening. COMPARISON: 16 November 2016, 24 December 2014, 27 March 2013 TECHNIQUE: Bilateral digital MLO and CC views were obtained. CAD software was utilized in evaluation of this study. FINDINGS: There scattered fibroglandular densities that are stable in distribution. No dominant mass or suspicious clusters of microcalcifications. There are no secondary signs of malignancy. IMPRESSION: Negative screening mammogram. Recommend routine mammography in 1 year Annual screening mammogram is recommended and patient was entered into site's reminder system. BI-RADS Category 1 - Negative Dictated By:El Perez Signed By:11/29/17 1145 DD/ 1145 TD/TT: Transportation Equipment Painter: JOSE cc: El Perez; Marlene Gr Radiology Report from [facility] on 11/27/2018 15:45:[address] [address] XRay Report Signed Patient: Cary Olsen MR#: [id number] : 1965 Acct: [id number] Age/Sex: 53 / F ADM Date: 11/27/18 Loc: ED Attending Provider : Ordering Provider: Sigrid Stevens Date of Service: 11/27/18 Procedure(s ): XR chest 1V Accession Number(s): [id number] EXAM: Chest, AP View INDICATION: Dyspnea, left-sided chest pain TECHNIQUE: Single AP view COMPARISON: Chest radiographs 04/09/2016 FINDINGS: The heart size is normal. The great vessels appear unremarkable. There is no hilar or mediastinal mass. The lungs are clear. There is no pleural effusion or pneumothorax. There are no acute osseous abnormalities. IMPRESSION: No acute cardiopulmonary disease. Dictated By: [place] Signed By: 11/27/18 1544 DD/ 1544 TD/TT: Transportation Equipment Painter: KATRINA cc: Sigrid Gr APRN Radiology Report from [facility] on 11/27/2018 18:43:[address] [address] [address] Scan Report Signed Patient: Cary Olsen MR#: [id number] : 1965 Acct: [id number] Age/Sex: 53 / F ADM Date: 11/27/18 Loc: ED Attending Provider : Ordering Provider: Sigrid Stevens Date of Service: 11/27/18 Procedure(s ): CT angio chest PE protocol Accession Number(s): [id number] EXAM: CT Pulmonary Angiogram INDICATION: Chest pain and shortness of breath. TECHNIQUE: Multi-detector row images were acquired from the thoracic inlet through the upper abdomen with the use of IV contrast. Sagittal and coronal images were acquired from the transaxial data. MIP images of the pulmonary arteries were obtained. All CT scans performed at this facility utilize dose optimization techniques as appropriate to the exam, including the following: Automated exposure control and adjustment of the mA and/or KV according to patient size (this includes techniques or standardized protocols for targeted exams where dose is indication/reason for exam). IV CONTRAST: Administered DLP: 562.9 mGycm COMPARISON: Earlier same day chest x- ray FINDINGS: PULMONARY ARTERIES: No pulmonary emboli are identified. CARDIOVASCULAR: Unremarkable. Aorta is normal caliber. MEDIASTINUM JAYDE: A 2.5 cm left hilar mass abutting the left lower lobe pulmonary artery is present. This is not readily visible on the chest x-ray. LUNGS: Superior segment left lower lobe 1.7 cm irregular nodular opacity is present at the periphery. Mild bibasilar atelectatic changes with most conspicuous in the lingula and in the posterior basal left lower lobe are also present. Lungs otherwise are clear. PLEURAL SPACE: No pleural effusions. No pneumothorax. OSSEOUS SOFT TISSUES: Unremarkable. ABDOMEN: Visualized upper abdomen shows a multiple bilateral renal cortical lesions statistically likely to be cysts, and a 2 mm nonobstructing stone in the mid to lower pole left kidney. Post cholecystectomy changes are also noted in addition to an accessory left hepatic artery. IMPRESSION: 1. No pulmonary emboli. 2. A 1.7 cm irregular nodule in the peripheral left lower lobe superior segment is associated with left hilar adenopathy and although could represent an inflammatory process, a lung malignancy has not been excluded. Recommend clinical follow-up. Report telephoned at 6:33 p.m. on November 27, 2018 to the ordering provider, where JEMIMA Pablo took the report on her ( Sigrid Stevens's ) behalf. Dictated By: Cindi Berry Signed By: 11/27/181841 DD/ 41 TD/TT: Transportation Equipment Painter: KASSANDRA cc: Sigrid Stevens; Marlene Gr APRN [facility] on 12/06/2018 10:58:00 [facility] [address] [place] [address] Mammography Report Signed Patient: Cary Olsen MR#: [id number] : 1965 Acct: [id number] Age/Sex: 53 / F ADM Date: 11/30/18 Loc: RAD Attending Provider : Marlene Gr APRN Ordering Provider: Marlene Gr APRN Birad: 1 Negative Date of Service: 11/30/18 Follow Up: 1 Year Follow-Up Procedure(s): MM screening mammo BI Accession Number(s): [id number] EXAM: Bilateral Digital Screening Mammogram INDICATION: Routine screening. COMPARISON: 29 November 2017, 16 November 2016, 24 December 2014, 27 March 2013 TECHNIQUE: Bilateral digital MLO and CC views were obtained. CAD software was utilized in evaluation of this study. BREAST DENSITY: Breast density is composed of scattered fibroglandular densities. FINDINGS: Fibroglandular densities are symmetrically distributed bilaterally. Benign- appearing calcifications. No suspicious calcification, architectural distortion, or developing mass. IMPRESSION: Negative screening mammogram. Recommend routine mammography in 1 year Annual screening mammogram is recommended and patient was entered into site's reminder system. BI-RADS Category 1 - Negative Dictated By:El Perez Signed By:12/06/18 1057 DD/ 1057 TD/TT: Transportation Equipment Painter: JOSE cc: Marlene Gr APRN Encounters ACCT No. Visit Date/Time Discharge Status Pt. Type Provider Facility Loc./Unit Complaint [id number] 01/03/2018 09:17:00 01/03/2018 23:59:59 CLS Outpatient Larry Francis [facility] [id number] 12/27/2017 09:21:00 12/27/2017 23:59:59 CLS Outpatient Larry Francis [facility] [id number] 11/29/2017 10:36:00 11/29/2017 23:59:[address] [facility] [id number] 11/24/2017 14:45:00 11/24/2017 23:59:59 CLS Outpatient Marlene Gr [facility] [id number] 11/22/2017 12:55:00 11/22/2017 23:59:59 CLS Outpatient Luis Daniel [facility] [id number] 11/18/2017 08:52:00 11/18/2017 23:59:59 CLS Outpatient Marlene Gr [facility] [id number] 06/03/2017 07:46:00 06/03/2017 23:59:59 CLS Outpatient Luis Daniel [facility] [id number] 02/12/2017 08:06:00 02/12/2017 23:59:59 CLS Outpatient Luis [facility] [id number] 02/12/2017 07:47:00 02/12/2017 23:59:59 CLS Outpatient Luis Daniel [facility] [id number] 02/09/2017 14:38:00 02/09/2017 23:59:59 CLS Outpatient Luis Daniel [facility] [id number] 11/20/2016 13:03:00 11/20/2016 23:59:59 CLS Outpatient Concepcion Alcantara DO [facility] [id number] 11/11/2016 12:57:00 11/11/2016 23:59:59 CLS Outpatient Marlene Gr [facility] [id number] 11/04/2016 15:24:00 11/04/2016 23:59:59 CLS Outpatient Luis Daniel [facility] [id number] 11/02/2016 14:13:00 11/02/2016 23:59:59 CLS Outpatient Marlene Gr [facility] [id number] 11/18/2017 22:38:00 Document Registration [id number] 11/04/2017 20:35:00 Document Registration [id number] 06/07/2017 20:36:00 Document Registration [id number] 06/03/2017 11:36:00 Document Registration [id number] 02/16/2017 16:14:00 Document Registration [id number] 02/15/2017 09:56:00 Document Registration [id number] 02/15/2017 09:55:00 Document Registration [id number] 02/09/2017 20:55:00 Document Registration [id number] 11/20/2016 13:03:00 Document Registration [id number] 11/11/2016 17:23:00 Document Registration [id number] 11/04/2016 15:24:00 Document Registration [id number] 11/02/2016 23:02:00 Document Registration [id number] 11/30/2018 15:07:00 11/30/2018 15:08:00 DIS Outpatient Marlene Gr SAT INSTRUCTOR [facility] Encounter for screening mammogram for malignant ne [id number] 11/27/2018 14:57:00 11/27/2018 21:22:00 DIS Emergency Sigrid Stevens [facility] ED Chest pain [id number] 11/23/2018 09:07:00 11/23/2018 15:39:00 DIS Outpatient [facility] [id number] 11/23/2018 10:37:00 11/23/2018 10:38:00 DIS Outpatient Marlene Gr APRN LAB CLINIC [id number] 05/17/2018 08:24:00 05/17/2018 15:59:00 DIS Outpatient Marlene Gr [facility] FM cholesterol & labs [id number] 05/17/2018 09:09:00 05/17/2018 09:10:00 DIS Outpatient Marlene Gr LAB CLINIC [id number] 06/03/2017 08:05:00 06/03/2017 23:59:59 CLS Outpatient [facility] LAB-CLINIC [id number] 02/12/2017 08:35:00 02/12/2017 23:59:59 CLS Outpatient [facility] LAB-CLINIC [id number] 11/16/2016 09:59:00 11/16/2016 23:59:59 [facility] [id number] 11/02/2016 15:36:00 11/02/2016 23:59:59 [facility] [id number] 04/09/2016 15:31:00 04/09/2016 17:10:00 DIS Emergency Jaime Lafleur DO R [facility] [id number] 11/29/2017 10:52:00 Document Registration [id number] 11/18/2017 10:40:00 Document Registration [id number] 01/16/2016 08:49:00 Document Registration [id number] 12/15/2018 18:35:44 12/15/2018 23:59:59 CLS Outpatient [facility] LAB [id number] 12/14/2018 13:46:53 12/14/2018 23:59:59 CLS Outpatient [facility] EMPOR [id number] 12/14/2018 09:50:12 12/14/2018 23:59:59 CLS Outpatient ZACKERY FELIPE [facility] E[facility] [id number] 12/02/2018 11:31:58 12/02/2018 17:17:00 DIS Outpatient DREW VALLADARES S [facility] PER [id number] 11/27/2018 22:30:00 11/28/2018 14:44:00 DIS Outpatient JAS LY [facility] 6TN [id number] 12/14/2017 13:30:12 12/14/2017 23:59:59 CLS Outpatient ZACKERY FELIPE [facility] EMPOR [id number] 12/14/2017 13:29:15 12/14/2017 23:59:59 CLS Outpatient [facility] EMP[facility] [id number] 12/09/2017 13:28:43 12/09/2017 23:59:59 CLS Outpatient ZACKERY FELIPE [facility] E[facility] [id number] 12/12/2018 15:23:47 Document Registration [id number] 12/02/2018 15:22:02 Document Registration
--- NOTE | 2019-01-11 11:35 | Progress Note-Pre Operative ---
Pre-Operative Progress Note H&P Reviewed The H&P was reviewed, patient examined and no changes noted. Time Seen by Provider: 11:32 Date H&P Reviewed: January 11, 2019 Time H&P Reviewed: 11:33 Pre-Operative Diagnosis: Venous Insufficiency, Lung CA CHRISTINA HOOKS DO January 11, 2019 11:35
[2019-01-11] MEDS ORDERED: CLINDAMYCIN 600 MG/50 ML IVPB 50 ML IV ONE ×3 (11:45→13:15)
[2019-01-11] MEDS ORDERED: PROPOFOL INJECTION 50 ML IV ONE (11:50)
[2019-01-11] MEDS ORDERED: MIDAZOLAM 2 MG/2 ML (VERSED) VIAL ONE (11:50)
--- NOTE | 2019-01-11 12:36 | Progress Note-Post Operative ---
Post-Operative Progess Note Surgeon (s)/Sausage Smoker (s) Surgeon CHRISTINA HOOKS DO Sausage Smoker: none Pre-Operative Diagnosis Venous Insufficiency, Lung CA Post-Operative Diagnosis same Procedure & Operative Findings Date of Procedure 01/11/19 Procedure Performed/Findings Feli-cath insertion Anesthesia Type IV sedation by ENGINEERING SPECIALIST Estimated Blood Loss Estimated blood loss (mL): scant Specimens/Packing Specimens Removed none CHRISTINA HOOKS DO January 11, 2019 12:36
[2019-01-11] MEDS ORDERED: ACHD5005 PO (12:37)
--- NOTE | 2019-01-11 12:38 | Discharge Inst-Surgical ---
Discharge Inst-Surgical Depart Medication/Instructions New, Converted or Re-Newed RX: RX Given to Pt/Family Patient Instructions Follow up Appt: Make appointment for 1 week. [phone] Instructions: No strenuous activity. May shower in 24 hours, no tub bath or soaking. Use incentive spirometer at home as directed. No Smoking Skin/Wound Care: May remove bandages in am. You need to leave the Dermabond on incision it will fall off on it's own. Symptoms to Report: Appetite Changes, Extremity Discoloration, Numbness/Tingling, Swelling Increased , Bleeding Excessive, Eyesight Changes, Pain Increased, Urine Color Change, Constipation(Persistent), Fever over 101 degree F, Pain/Pressure in chest, Urinating Difficulty, Cough Up/Vomit Blood, Heart Beat Irreg/Pounding, Pain/ Pressure in jaw, Cramps in feet or legs, Lightheadedness, Pain/Pressure in shoulder, Diarrhea(Persistent), Memory Changes Suddenly, Questions/Concerns, Weight gain consecutive days, Dizziness/Fainting, Nausea/Vomiting, Shortness of Breath, Weight gain over 2 pounds If questions or concerns contact your physician Or seek help at emergency department. Activity Activity as Tolerated: Yes Activity Instructions: Avoid Stress to Incision Driving Instructions: No Driving/Refer to Dr. Meade Discharge Diet: No Restrictions Diet After 24 Hours: Clear Liquid if Nauseous If Any Problems/Questions/Issu: Contact Your Physician, Go to Emergency Room Skin/Wound Care Infection Signs and Symptoms: Increased Redness, Foul Odor of Wound, Increased Drainage, Skin Itchy or Has a Rash, Increased Swelling, Temperature Above 101 F Bathing Instructions: Shower Stitches/Minna/Dermabond Dis: Dermabond Ice Pack: Ice On and Off Site CHRISTINA HOOKS DO January 11, 2019 12:38
[2019-01-11] MEDS ORDERED: LACTATED RINGERS 1,000 ML IV PRN (12:51)
[2019-01-11] MEDS ORDERED: ONDANSETRON 4 MG/2 ML (SDV) Z0FRAN IVP PRN (13:00)
[2019-01-11] MEDS ORDERED: morphine INJ 10 MG/ML 1ML (SYR OR VIAL) IVP ONE (13:00)
--- NOTE | 2019-01-11 13:00 | Anesthesia-General Post-Op ---
MAC Patient Condition Mental Status/LOC: Same as Preop Cardiovascular: Satisfactory Nausea/Vomiting: Absent Respiratory: Satisfactory Pain: Controlled Complications: Absent Post Op Complications Complications None Follow Up Care/Instructions Patient Instructions None needed. Anesthesiology Discharge Order Discharge Order Patient is doing well, no complaints, stable vital signs, no apparent adverse anesthesia problems. No complications reported per nursing. WILLIAM THOMAS CRNA January 11, 2019 13:00
--- NOTE | 2019-01-11 16:15 | OPERATIVE REPORT ---
DATE OF SERVICE: PREOPERATIVE DIAGNOSES: 1. Venous insufficiency. 2. Left lung cancer. POSTOPERATIVE DIAGNOSES: 1. Venous insufficiency. 2. Left lung cancer. PROCEDURE: Insertion of Port-A-Cath. SURGEON: Kal Chang DO. FISCAL OFFICER: None. ANESTHESIA: IV sedation by ASSISTANT EDITOR. SPECIMEN: None. BLOOD LOSS: Scant. FLUIDS: Per anesthesia. POSTOPERATIVE CONDITION: Stable. INDICATION FOR PROCEDURE: The patient is a 53-year-old female who unfortunately recently diagnosed with left lung cancer. She has some venous insufficiency, will need long-term IV access. FINDINGS: The patient had a Port-A-Cath placed in right anterior chest wall, right subclavian vein. PROCEDURE NOTE: After informed consent was obtained, the patient was brought to the operating room, placed on the table in supine position. She was sterilely prepped and draped in normal fashion. Local lidocaine was used to infiltrate the right anterior chest wall towards the clavicle as well as then in area for the pocket creation of the Port-A-Cath. Then the patient was placed slightly Trendelenburg and using 18 gauge fine needle, advanced with negative inspiration towards the right subclavian vein, cannulated on the first attempt. Good flash of blood, removed the syringe, placed a guidewire down this needle using Seldinger technique, it went in easily, checked with fluoroscopy, it was in good position. Then, made a stab incision along the guidewire with a #11 blade and then made a small incision in right anterior chest wall with #11 blade, carried down to skin and subcutaneous tissue, deepened down to subcutaneous tissue with Bovie electrocautery down to the fascia of the pectoralis major muscle and then bluntly created a pocket with a finger as well as Bovie electrocautery. Once this was done, tunneled the catheter from the stab incision into the pocket. Then, over the guidewire, placed a dilator using Seldinger technique, it went in easily, checked with fluoroscopy, it was in good position, removed the inner portion of the dilator as well as the guidewire and then placed the catheter down the dilator using the Seldinger technique, it went in easily, removed the dilator and then checked with fluoroscopy, the catheter was in good position. At this point, then removed the inner wire from the catheter, attached it to the port and then attached the locking mechanism, then cannulated the port with a Mena needle. Good flash of blood and then easily flushed with saline and then flushed another 2 mL of heparin. I then placed the port into the pocket previously created, sutured down with a 3-0 Prolene and then closed the incision, closing the subcutaneous tissue with 3-0 Vicryl, 2 interrupted sutures and closed the skin with 4-0 undyed Monocryl, 3 interrupted subcuticular stitches. Area was cleaned and dried. Dermabond placed over this and larger incision as well as a stab incision. Band-Aids placed and the patient tolerated procedure well. Sponge, instrument and needle counts were correct at the end of the case. Job ID: [id number] DocumentID: [id number] Dictated Date: 01/11/2019 12:35:21 Mems Device Scientist Date: 01/11/2019 16:14:51 Dictated By: KAL CHANG DO
--- NOTE | 2019-01-11 18:33 | Diagnostic Imaging Report ---
INDICATION: Limited intraoperative fluoroscopy view obtained in surgery during Port-A-Cath placement per Dr. Chang. FINDINGS: Port is visualized over the right chest with catheter entering the right subclavian vein and catheter tip overlying low SVC. This study is otherwise limited. 3 seconds of fluoroscopy time was used. IMPRESSION: Intraoperative view demonstrates Port-A-Cath placement as above. 3 seconds of fluoroscopy time was used in surgery. Dictated by: Dictated on workstation # [id number]
== END 2019-01-11 12:45 | disposition home or self-care (01) ==
LOC: SDC 11:16
PROVIDERS: ATTEND Surgery
DX: I87.2 Venous insufficiency (chronic) (peripheral) (principal); C34.92 Malignant neoplasm of unspecified part of left bronchus or lung; Z11.2 Encounter for screening for other bacterial diseases; Z88.1 Allergy status to other antibiotic agents; R73.03 Prediabetes; E78.00 Pure hypercholesterolemia, unspecified; F17.210 Nicotine dependence, cigarettes, uncomplicated; Z80.3 Family history of malignant neoplasm of breast; Z80.8 Family history of malignant neoplasm of other organs or systems; E78.5 Hyperlipidemia, unspecified; F41.9 Anxiety disorder, unspecified; F32.9 Major depressive disorder, single episode, unspecified; K21.9 Gastro-esophageal reflux disease without esophagitis; E66.9 Obesity, unspecified; Z79.84 Long term (current) use of oral hypoglycemic drugs; Z79.899 Other long term (current) drug therapy; Z88.0 Allergy status to penicillin; Z68.34 Body mass index [BMI] 34.0-34.9, adult
CPT/HCPCS: 82962; 84703; 87081

== ENCOUNTER → 2019-05-10 | Outpatient (CLI) | payer BC ==
[~2019-05-10] MED LIST changes: +ACHD5005 PO; +BARIUM SUSPENSION 2.1% (VANILLA SILQ) 450 ML PO ONE; +GADOBUTROL 10 MMOL/10 ML (GADAVIST) VIAL IV ONE; +HOLD METFORMIN - RECEIVED CONTRAST 20 ML VIAL IV SCH; +IOHEXOL 350 MG/ML 100 ML (OMNIPAQUE 350) VIAL IV ONE; +NS 100 ML (IVPB) BAG IV ONE; +RANI-613 PO; -RANI150T46 PO; -ROSU20TA31 PO; +ROSU20TA32 PO
--- NOTE | 2019-05-10 14:35 | Diagnostic Imaging Report ---
PROCEDURE: CT chest with contrast, CT abdomen and pelvis with and without contrast. TECHNIQUE: Pre and post intravenous contrast axial imaging of the abdomen and pelvis and post contrast axial imaging of the chest were performed. Auto Exposure Controls were utilized during the CT exam to meet ALARA standards for radiation dose reduction. INDICATION: Small cell lung carcinoma. Comparison is made with prior PET/CT from 01/03/2019. CT chest: A right chest wall port has its tip at the SVC right atrial junction. No axillary lymphadenopathy is detected. Previously noted mass in the left hilum is no longer appreciated. No enlarged hilar or mediastinal lymph nodes are identified. No pericardial or pleural fluid is detected. There is minimal density in the region of the super segment of the left lower lobe. However, this is improved when compared with exam from 01/03/2019. No discrete parenchymal mass is identified. IMPRESSION: Improved appearance of the chest since the PET/CT from 01/03/2019. Left hilar mass is no longer visualized. No definite thoracic lymphadenopathy or evidence of pulmonary metastatic disease is identified. CT abdomen and pelvis: No discrete liver mass is identified. The gallbladder is surgically absent. No biliary ductal dilatation is seen. The pancreas and spleen are unremarkable. No adrenal mass is identified. Kidneys contain small cortical low densities, too small to characterize but most likely represent cysts. Aorta is calcified but nonaneurysmal. No central retroperitoneal or mesenteric lymphadenopathy is detected. The small and large bowel loops are normal in caliber. There is no obstruction. There is no free fluid or loculated fluid collection. The bladder is unremarkable. Uterus appears to be absent or atrophic. No definite pelvic lymphadenopathy is seen. The bony structures are nonacute. IMPRESSION: 1. Unremarkable CT of the abdomen and pelvis. No abdominal or pelvic lymphadenopathy or evidence of metastatic disease is identified. 2. Probable bilateral renal cysts. Dictated by: Dictated on workstation # [id number]
--- NOTE | 2019-05-10 15:12 | Diagnostic Imaging Report ---
PROCEDURE: MR imaging of the brain with and without contrast. TECHNIQUE: Multiplanar, multisequence MR imaging of the brain was performed with and without contrast. INDICATION: Lung carcinoma. COMPARISON: Correlation is made with prior MRI of the brain from 01/10/2019. FINDINGS: No diffusion restriction is identified. The normal expected flow voids within the carotid siphons are seen. Ventricles and sulci are stable in appearance. Periventricular and subcortical white matter signal abnormalities are noted consistent with chronic microvascular ischemia. No acute intra-axial or extra-axial hemorrhage is detected. The previously described punctate focus of enhancement in the right posterior frontal lobe is again noted and appears unchanged from prior MRI brain. No additional sites of enhancement are seen. The corpus callosum is unremarkable. The sella and parasellar structures are unremarkable. IMPRESSION: Stable pre-and postcontrast MRI of the brain when compared with exam from 01/10/2019. The punctate focus of enhancement in the posterior right frontal lobe appears stable and indeterminate. Continued followup could be performed. No new abnormality is seen. Dictated by: Dictated on workstation # [id number]
== END ==
LOC: RAD 13:30
PROVIDERS: ATTEND Internal Medicine Hematology & Oncology
DX: C34.90 Malignant neoplasm of unspecified part of unspecified bronchus or lung (principal); R90.89 Other abnormal findings on diagnostic imaging of central nervous system
CPT/HCPCS: 70553; 71260; 74178

== ENCOUNTER 2019-06-08 10:48 | Outpatient (RCR) | payer BC ==
[2019-03-24 10:43] LABS: BASOPHILS % (AUTO) 1 % (0-10); EOSINOPHILS # (AUTO) 0.1 10^3/uL (0.0-0.3); EOSINOPHILS % (AUTO) 2 % (0-10); HEMATOCRIT 38 % (35-52); HEMOGLOBIN 12.4 G/DL (11.5-16.0); LYMPHOCYTES # (AUTO) 0.8 X 10^3 (1.0-4.0); LYMPHOCYTES % (AUTO) 34 % (12-44); MEAN CORPUSCULAR HEMOGLOBIN 32 PG (25-34); MEAN CORPUSCULAR HGB CONC 32 G/DL (32-36); MEAN CORPUSCULAR VOLUME 98 FL (80-99); MEAN PLATELET VOLUME 9.4 FL (7.4-10.4); MONOCYTES # (AUTO) 0.4 X 10^3 (0.0-1.0); MONOCYTES % (AUTO) 17 % (0-12); NEUTROPHILS # (AUTO) 1.1 X 10^3 (1.8-7.8); NEUTROPHILS % (AUTO) 46 % (42-75); PLATELET COUNT 237 10^3/uL (130-400); RED CELL DISTRIBUTION WIDTH 14.5 % (10.0-14.5); WHITE BLOOD COUNT 2.4 10^3/uL (4.3-11.0)
[2019-03-24 11:01] LABS: ALANINE AMINOTRANSFERASE 15 U/L (0-55); ALBUMIN 4.2 GM/DL (3.2-4.5); ALKALINE PHOSPHATASE 85 U/L (40-136); BILIRUBIN,TOTAL 0.3 MG/DL (0.1-1.0); BUN/CREATININE RATIO 11; CALCIUM 9.4 MG/DL (8.5-10.1); CARBON DIOXIDE 22 MMOL/L (21-32); CHLORIDE 103 MMOL/L (98-107); CREATININE SERUM 0.84 MG/DL (0.60-1.30); GFR ESTIMATED > 60; GLUCOSE 112 MG/DL (70-105); MAGNESIUM 2.2 MG/DL (1.8-2.4); POTASSIUM 3.8 MMOL/L (3.6-5.0); SODIUM 142 MMOL/L (135-145); TOTAL PROTEIN 6.9 GM/DL (6.4-8.2)
[2019-05-10 13:22] LABS: BASOPHILS % (AUTO) 0 % (0-10); EOSINOPHILS # (AUTO) 0.1 10^3/uL (0.0-0.3); EOSINOPHILS % (AUTO) 2 % (0-10); HEMATOCRIT 39 % (35-52); HEMOGLOBIN 13.2 G/DL (11.5-16.0); LYMPHOCYTES # (AUTO) 1.2 X 10^3 (1.0-4.0); LYMPHOCYTES % (AUTO) 22 % (12-44); MEAN CORPUSCULAR HEMOGLOBIN 33 PG (25-34); MEAN CORPUSCULAR HGB CONC 34 G/DL (32-36); MEAN CORPUSCULAR VOLUME 98 FL (80-99); MEAN PLATELET VOLUME 10.5 FL (7.4-10.4); MONOCYTES # (AUTO) 0.6 X 10^3 (0.0-1.0); MONOCYTES % (AUTO) 11 % (0-12); NEUTROPHILS # (AUTO) 3.3 X 10^3 (1.8-7.8); NEUTROPHILS % (AUTO) 64 % (42-75); PLATELET COUNT 224 10^3/uL (130-400); WHITE BLOOD COUNT 5.2 10^3/uL (4.3-11.0)
[2019-05-10 13:42] LABS: ALANINE AMINOTRANSFERASE 12 U/L (0-55); ALBUMIN 4.4 GM/DL (3.2-4.5); ALKALINE PHOSPHATASE 72 U/L (40-136); BILIRUBIN,TOTAL 0.3 MG/DL (0.1-1.0); BUN/CREATININE RATIO 11; CALCIUM 9.5 MG/DL (8.5-10.1); CARBON DIOXIDE 24 MMOL/L (21-32); CHLORIDE 105 MMOL/L (98-107); CREATININE SERUM 0.75 MG/DL (0.60-1.30); GFR ESTIMATED > 60; GLUCOSE 84 MG/DL (70-105); POTASSIUM 3.8 MMOL/L (3.6-5.0); SODIUM 141 MMOL/L (135-145)
[~2019-06-08] VITALS: Ht 165.1 cm; Wt 92.1 kg
[~2019-06-08 10:48] MED LIST changes: -BARIUM SUSPENSION 2.1% (VANILLA SILQ) 450 ML PO ONE; +CISPLATIN IV SCH; +ETOPOSIDE 200 MG in NORMAL SALINE (CANCER CENTER) 500 ML IV SCH; +FOSAPREPITANT DIMEGLUMINE 150 MG in NS (IVPB) CANCER CENTER ONLY 150 ML IV SCH; -GADOBUTROL 10 MMOL/10 ML (GADAVIST) VIAL IV ONE; -HOLD METFORMIN - RECEIVED CONTRAST 20 ML VIAL IV SCH; -IOHEXOL 350 MG/ML 100 ML (OMNIPAQUE 350) VIAL IV ONE; +MAGNESIUM SULFATE IV SCH; +MANNITOL IV SCH; -NS 100 ML (IVPB) BAG IV ONE; +NS IV 1000 ML (CANCER CTR) IV SCH; +ONDANSETRON MDV (CANCER CENTER 16 MG, DEXAMETHASONE INJECTION 10 MG in NS (IVPB) CANCER... IV SCH; +PALONOSETRON HCL 0.25 MG, DEXAMETHASONE INJECTION 10 MG in NS (IVPB) CANCER CENTER 50 ML IV SCH; +[UNRECOGNIZED DRUG - OTHER] IV SCH
== END 2019-06-22 | disposition home or self-care (01) ==
LOC: ONC 10:48
PROVIDERS: ATTEND Internal Medicine Hematology & Oncology
DX: Z51.0 Encounter for antineoplastic radiation therapy (principal); C34.92 Malignant neoplasm of unspecified part of left bronchus or lung; E88.81 Metabolic syndrome and other insulin resistance; E78.5 Hyperlipidemia, unspecified; L40.9 Psoriasis, unspecified; E11.9 Type 2 diabetes mellitus without complications; F17.210 Nicotine dependence, cigarettes, uncomplicated; Z80.3 Family history of malignant neoplasm of breast; Z80.1 Family history of malignant neoplasm of trachea, bronchus and lung; Z80.8 Family history of malignant neoplasm of other organs or systems; Z88.0 Allergy status to penicillin; Z79.899 Other long term (current) drug therapy; Z79.84 Long term (current) use of oral hypoglycemic drugs
CPT/HCPCS: 36415; 36591; 77290; 77295; 77300; 77334; 77336; 77417; 80053; 83735; 85025; 96375; 96413; 99213

== ENCOUNTER → 2019-08-09 | Outpatient (CLI) | payer BC ==
[~2019-08-09] MED LIST changes: -CISPLATIN IV SCH; -ETOPOSIDE 200 MG in NORMAL SALINE (CANCER CENTER) 500 ML IV SCH; -FOSAPREPITANT DIMEGLUMINE 150 MG in NS (IVPB) CANCER CENTER ONLY 150 ML IV SCH; +GADOBUTROL 10 MMOL/10 ML (GADAVIST) VIAL IV ONE; -MAGNESIUM SULFATE IV SCH; -MANNITOL IV SCH; -NS IV 1000 ML (CANCER CTR) IV SCH; -ONDANSETRON MDV (CANCER CENTER 16 MG, DEXAMETHASONE INJECTION 10 MG in NS (IVPB) CANCER... IV SCH; -PALONOSETRON HCL 0.25 MG, DEXAMETHASONE INJECTION 10 MG in NS (IVPB) CANCER CENTER 50 ML IV SCH; -[UNRECOGNIZED DRUG - OTHER] IV SCH
--- NOTE | 2019-08-09 15:35 | Diagnostic Imaging Report ---
PROCEDURE: MR imaging of the brain with and without contrast. TECHNIQUE: Multiplanar, multisequence MR imaging of the brain was performed with and without contrast. INDICATION: History of lung cancer. Evaluate for metastatic disease to the brain. COMPARISON: MRI brain on 05/10/2019. Findings: No acute ischemia, mass, or hemorrhage. No abnormal enhancement is visualized. Chronic microvascular disease is seen in the periventricular and subcortical white matter. The ventricles, cortical sulci, and basilar cisterns are symmetric and unremarkable. The sellar and suprasellar regions have a normal appearance. The major intracranial flow voids are intact. The brainstem and posterior fossa are unremarkable. A small mucous retention cyst is seen in the left maxillary sinus. Otherwise, the paranasal sinuses demonstrate normal signal characteristics. Bilateral mastoid effusions are present. The globes and orbits are symmetric and unremarkable. The scalp and calvarium have a normal appearance. Impression: 1. No acute ischemia, mass, or hemorrhage. No abnormal enhancement to suggest metastatic disease. 2. Chronic microvascular disease. 3. Bilateral mastoid effusions. Dictated by: Dictated on workstation # [id number]
--- NOTE | 2019-08-09 15:59 | Diagnostic Imaging Report ---
EXAMINATION: CT Chest with intravenous contrast, CT Abdomen and Pelvis without and with intravenous contrast. TECHNIQUE: Pre and post intravenous contrast axial imaging of the abdomen and pelvis and post contrast axial imaging of the chest were performed. All CT scans use one or more of the following dose optimizing techniques: automated exposure control, MA and/or KvP adjustment based on a patient size and exam type, or iterative reconstruction. HISTORY: SMALL CELL LUNG CA COMPARISON: 05/10/2019 FINDINGS: The lungs are clear without edema or pneumonia. No pleural effusion or pneumothorax. No suspicious nodules. There is mild atelectasis in the left lung. Heart size is normal. No pericardial effusion. Aorta is normal in caliber. There is no axillary or supraclavicular lymphadenopathy. There is no mediastinal lymphadenopathy. Right port catheter tip terminates in the superior vena cava. Mucous is present in the trachea. The liver is normal without focal lesion. There is no biliary ductal dilation. Gallbladder is absent. Pancreas is normal. Spleen is normal. Adrenal glands are normal. The kidneys contain multiple cysts. There is no hydronephrosis. Urinary bladder is normal. There are no dilated loops of large or small bowel. No obstruction or inflammation. No free fluid or air. No abdominal or pelvic lymphadenopathy. Aorta is normal in caliber without aneurysm. There are no suspicious osseous lesions. IMPRESSION: 1. No evidence for metastatic disease in the chest, abdomen or pelvis. Dictated by: Dictated on workstation # [id number]
== END ==
LOC: RAD 13:44
PROVIDERS: ATTEND Internal Medicine Hematology & Oncology
DX: Z01.89 Encounter for other specified special examinations (principal); G93.6 Cerebral edema; I67.89 Other cerebrovascular disease; R90.89 Other abnormal findings on diagnostic imaging of central nervous system; Z92.3 Personal history of irradiation; Z85.118 Personal history of other malignant neoplasm of bronchus and lung
CPT/HCPCS: 70553; 71260; 74178

== ENCOUNTER → 2019-11-01 | Outpatient (CLI) | payer BC ==
[~2019-11-01] MED LIST changes: +CATHETER FLUSH 10 ML SYR IV PRN; -GADOBUTROL 10 MMOL/10 ML (GADAVIST) VIAL IV ONE; +HOLD METFORMIN - RECEIVED CONTRAST 20 ML VIAL IV SCH; +IOHEXOL 350 MG/ML 100 ML (OMNIPAQUE 350) VIAL IV ONE; +NS 100 ML (IVPB) BAG IV ONE
--- NOTE | 2019-11-01 16:15 | Diagnostic Imaging Report ---
PROCEDURE: CT chest with contrast, CT abdomen and pelvis with and without contrast. INDICATION: Small cell lung cancer, followup. TECHNIQUE: Pre and post intravenous contrast axial imaging of the abdomen and pelvis and post contrast axial imaging of the chest were performed. Auto Exposure Controls were utilized during the CT exam to meet ALARA standards for radiation dose reduction. CORRELATION STUDY: CT chest, abdomen, and pelvis 08/09/2019, PET/CT 01/03/2019. FINDINGS: CT CHEST: Right subclavian Pnfldb-l-Ovac catheter is present with the tip in the low SVC. Heart size is within normal limits with a trace pericardial effusion. There is no suggestion for pathologically enlarged mediastinal, hilar, and/or axillary lymph nodes. Minimal soft tissue distortion of the left posterior hilar region. Thoracic aortic contour appearing unremarkable. Lung santiago do demonstrate some areas of likely fibrotic-type change in the subpleural region of both anterior and posterior regions of the left mid lung. CT ABDOMEN and PELVIS: The liver, spleen, pancreas, and adrenal glands demonstrate no significant interval change or findings to suggest abnormal mass lesion. Gallbladder is absent. Low-density partially exophytic masses of both kidneys favoring probable cysts. Renal parenchyma is otherwise unremarkable. There is presence of nonobstructing left renal stones. Abdominal aorta is with mild aortoiliac wall calcification, nonaneurysmal. Gastrointestinal tract is with mild severity fecal retention. No obstruction or inflammation. High density contrast within the colon. No abdominal ascites or free air. Urinary bladder unremarkable. Post hysterectomy. IMPRESSION: CT CHEST: Negative for acute abnormality of the chest. No findings to suggest thoracic metastatic disease. CT ABDOMEN and PELVIS: Negative for metastatic disease in the abdomen and/or pelvis. Dictated by: Dictated on workstation # [id number]
== END ==
LOC: RAD 14:00
PROVIDERS: ATTEND Internal Medicine Hematology & Oncology
DX: C34.32 Malignant neoplasm of lower lobe, left bronchus or lung (principal); Z90.710 Acquired absence of both cervix and uterus; Z90.49 Acquired absence of other specified parts of digestive tract
CPT/HCPCS: 71260; 74178

== ENCOUNTER 2019-11-03 13:14 | Outpatient (RCR) | payer BC ==
[2019-08-09 10:42] LABS: BASOPHILS % (AUTO) 0 % (0-10); EOSINOPHILS # (AUTO) 0.1 10^3/uL (0.0-0.3); EOSINOPHILS % (AUTO) 1 % (0-10); HEMATOCRIT 39 % (35-52); HEMOGLOBIN 13.1 G/DL (11.5-16.0); LYMPHOCYTES % (AUTO) 13 % (12-44); MEAN CORPUSCULAR HEMOGLOBIN 32 PG (25-34); MEAN CORPUSCULAR HGB CONC 34 G/DL (32-36); MEAN CORPUSCULAR VOLUME 94 FL (80-99); MONOCYTES # (AUTO) 0.7 X 10^3 (0.0-1.0); MONOCYTES % (AUTO) 9 % (0-12); NEUTROPHILS % (AUTO) 78 % (42-75); PLATELET COUNT 213 10^3/uL (130-400); RED CELL DISTRIBUTION WIDTH 12.6 % (10.0-14.5); WHITE BLOOD COUNT 7.8 10^3/uL (4.3-11.0)
[2019-08-09 11:05] LABS: ALANINE AMINOTRANSFERASE < 6 U/L (0-55); ALBUMIN 4.3 GM/DL (3.2-4.5); ALKALINE PHOSPHATASE 62 U/L (40-136); BILIRUBIN,TOTAL 0.4 MG/DL (0.1-1.0); BUN/CREATININE RATIO 11; CALCIUM 9.2 MG/DL (8.5-10.1); CARBON DIOXIDE 23 MMOL/L (21-32); CHLORIDE 105 MMOL/L (98-107); CREATININE SERUM 0.79 MG/DL (0.60-1.30); GFR ESTIMATED > 60; GLUCOSE 102 MG/DL (70-105); POTASSIUM 3.5 MMOL/L (3.6-5.0); SODIUM 139 MMOL/L (135-145); TOTAL PROTEIN 6.9 GM/DL (6.4-8.2)
[2019-11-01 14:02] LABS: BASOPHILS % (AUTO) 0 % (0-10); EOSINOPHILS # (AUTO) 0.1 10^3/uL (0.0-0.3); EOSINOPHILS % (AUTO) 1 % (0-10); HEMATOCRIT 41 % (35-52); HEMOGLOBIN 13.5 G/DL (11.5-16.0); LYMPHOCYTES # (AUTO) 1.2 X 10^3 (1.0-4.0); LYMPHOCYTES % (AUTO) 19 % (12-44); MEAN CORPUSCULAR HEMOGLOBIN 32 PG (25-34); MEAN CORPUSCULAR HGB CONC 33 G/DL (32-36); MEAN CORPUSCULAR VOLUME 97 FL (80-99); MEAN PLATELET VOLUME 10.4 FL (7.4-10.4); MONOCYTES # (AUTO) 0.4 X 10^3 (0.0-1.0); MONOCYTES % (AUTO) 6 % (0-12); NEUTROPHILS # (AUTO) 4.5 X 10^3 (1.8-7.8); NEUTROPHILS % (AUTO) 73 % (42-75); PLATELET COUNT 205 10^3/uL (130-400); RED CELL DISTRIBUTION WIDTH 13.2 % (10.0-14.5); WHITE BLOOD COUNT 6.2 10^3/uL (4.3-11.0)
[2019-11-01 14:26] LABS: ALANINE AMINOTRANSFERASE < 6 U/L (0-55); ALBUMIN 4.2 GM/DL (3.2-4.5); ALKALINE PHOSPHATASE 72 U/L (40-136); BILIRUBIN,TOTAL 0.3 MG/DL (0.1-1.0); BUN/CREATININE RATIO 9; CALCIUM 9.1 MG/DL (8.5-10.1); CARBON DIOXIDE 27 MMOL/L (21-32); CHLORIDE 108 MMOL/L (98-107); CREATININE SERUM 0.66 MG/DL (0.60-1.30); GFR ESTIMATED > 60; GLUCOSE 97 MG/DL (70-105); POTASSIUM 3.5 MMOL/L (3.6-5.0); SODIUM 143 MMOL/L (135-145); TOTAL PROTEIN 6.6 GM/DL (6.4-8.2)
[~2019-11-03 13:14] MED LIST changes: -CATHETER FLUSH 10 ML SYR IV PRN; -HOLD METFORMIN - RECEIVED CONTRAST 20 ML VIAL IV SCH; -IOHEXOL 350 MG/ML 100 ML (OMNIPAQUE 350) VIAL IV ONE; -NS 100 ML (IVPB) BAG IV ONE
== END 2019-11-07 | disposition home or self-care (01) ==
LOC: ONC 13:14
PROVIDERS: ATTEND Internal Medicine Hematology & Oncology
DX: C34.92 Malignant neoplasm of unspecified part of left bronchus or lung (principal); E88.81 Metabolic syndrome and other insulin resistance; E78.5 Hyperlipidemia, unspecified; L40.9 Psoriasis, unspecified; E11.9 Type 2 diabetes mellitus without complications; F17.210 Nicotine dependence, cigarettes, uncomplicated; G93.89 Other specified disorders of brain; Z80.1 Family history of malignant neoplasm of trachea, bronchus and lung; Z80.8 Family history of malignant neoplasm of other organs or systems; Z88.0 Allergy status to penicillin; Z79.899 Other long term (current) drug therapy; Z79.84 Long term (current) use of oral hypoglycemic drugs; Z90.710 Acquired absence of both cervix and uterus; Z72.89 Other problems related to lifestyle; Z80.3 Family history of malignant neoplasm of breast
CPT/HCPCS: 36591; 80053; 85025; 99213

== ENCOUNTER → 2020-01-24 | Outpatient (CLI) | payer BC, OTHER ==
[~2020-01-24] MED LIST changes: +BARIUM SUSPENSION 2.1% (VANILLA SILQ) 450 ML PO ONE; +CATHETER FLUSH 10 ML SYR IV PRN; +GADOBUTROL 10 MMOL/10 ML (GADAVIST) VIAL IV ONE; +HOLD METFORMIN - RECEIVED CONTRAST 20 ML VIAL IV SCH; +IOHEXOL 350 MG/ML 100 ML (OMNIPAQUE 350) VIAL IV ONE; +NS 100 ML (IVPB) BAG IV ONE
--- NOTE | 2020-01-24 12:45 | Diagnostic Imaging Report ---
PROCEDURE: CT chest with contrast, CT abdomen and pelvis with and without contrast. TECHNIQUE: Pre and post intravenous contrast axial imaging of the abdomen and pelvis and post contrast axial imaging of the chest were performed. Auto Exposure Controls were utilized during the CT exam to meet ALARA standards for radiation dose reduction. INDICATION: Small cell lung carcinoma, follow up. COMPARISON: Comparison is made with prior CT from 11/01/2019. FINDINGS: CT CHEST: Right chest wall port has the tip near the SVC-right atrial junction. No definite axillary or supraclavicular lymphadenopathy is identified. No mediastinal or hilar lymphadenopathy is detected. No significant pericardial or pleural effusion is detected. Subpleural linear opacities in the left upper and left lower lobe appear similar to prior exam. This is likely owing to scarring. No discrete mass is identified. IMPRESSION: Probable fibrotic scarring in the left upper and left lower lobe. No discrete parenchymal mass or evidence of thoracic lymphadenopathy is identified. CT ABDOMEN AND PELVIS: No discrete liver mass is detected. The gallbladder is surgically absent. No biliary ductal dilatation is identified. The pancreas and spleen are unremarkable. No adrenal mass is detected. Kidneys contain small cortical low densities, similar to prior exam and suggestive of cysts. Tiny nonobstructing calculi in the left kidney are also noted. The aorta is nonaneurysmal. No central retroperitoneal or mesenteric lymphadenopathy is identified. The small and large bowel loops are normal in caliber. There is no obstruction. No free fluid or fluid collection is seen. No definite pelvic lymphadenopathy is identified. The bladder is unremarkable. Uterus is absent or atrophic. Bony structures are nonacute. IMPRESSION: Stable CT abdomen and pelvis since exam from 11/01/2019. No mass or evidence of metastatic disease is identified. Dictated by: Dictated on workstation # [id number]
--- NOTE | 2020-01-24 14:37 | Diagnostic Imaging Report ---
PROCEDURE: MR imaging of the brain with and without contrast. TECHNIQUE: Multiplanar, multisequence MR imaging of the brain was performed with and without contrast. INDICATION: History of lung cancer. Evaluate for metastatic disease. No new complaints. COMPARISON: MRI brain on 08/09/2019. Findings: No acute ischemia, mass, or hemorrhage. No abnormal enhancement is seen to suggest metastatic disease. Scattered areas of T2 hyperintense signal are seen in the periventricular and subcortical white matter, similar to the prior exam. The ventricles, cortical sulci, and basilar cisterns are symmetric and unremarkable. The sellar and suprasellar regions have a normal appearance. The major intracranial flow voids are intact. The brainstem and posterior fossa are unremarkable. A small mucous retention cyst is seen in the antrum of the left maxillary sinus. Otherwise, the paranasal sinuses demonstrate normal signal characteristics. Bilateral mastoid effusions are present. The globes and orbits are symmetric and unremarkable. The scalp and calvarium have a normal appearance. IMPRESSION: 1. No acute ischemia, mass, or hemorrhage. No abnormal enhancement to suggest metastatic disease. 2. Stable T2 hyperintense signal lesions within the periventricular and subcortical white matter, favored to represent chronic microvascular disease. 3. Bilateral mastoid effusions, similar to the prior exam. Dictated by: Dictated on workstation # [id number]
== END ==
LOC: RAD 10:57
PROVIDERS: ATTEND Internal Medicine Hematology & Oncology
DX: G93.89 Other specified disorders of brain (principal); H75.02 Mastoiditis in infectious and parasitic diseases classified elsewhere, left ear; H75.01 Mastoiditis in infectious and parasitic diseases classified elsewhere, right ear; Z85.118 Personal history of other malignant neoplasm of bronchus and lung
CPT/HCPCS: 70553; 71260; 74178

== ENCOUNTER 2020-01-26 09:44 | Outpatient (RCR) | payer BC, OTHER ==
[2020-01-24 10:51] LABS: BASOPHILS % (AUTO) 0 % (0-10); EOSINOPHILS # (AUTO) 0.1 10^3/uL (0.0-0.3); EOSINOPHILS % (AUTO) 2 % (0-10); HEMATOCRIT 42 % (35-52); HEMOGLOBIN 14.1 G/DL (11.5-16.0); LYMPHOCYTES # (AUTO) 1.2 X 10^3 (1.0-4.0); LYMPHOCYTES % (AUTO) 21 % (12-44); MEAN CORPUSCULAR HEMOGLOBIN 32 PG (25-34); MEAN CORPUSCULAR HGB CONC 33 G/DL (32-36); MEAN CORPUSCULAR VOLUME 97 FL (80-99); MEAN PLATELET VOLUME 10.1 FL (7.4-10.4); MONOCYTES # (AUTO) 0.5 X 10^3 (0.0-1.0); MONOCYTES % (AUTO) 10 % (0-12); NEUTROPHILS # (AUTO) 3.7 X 10^3 (1.8-7.8); NEUTROPHILS % (AUTO) 67 % (42-75); PLATELET COUNT 218 10^3/uL (130-400); RED CELL DISTRIBUTION WIDTH 13.4 % (10.0-14.5); WHITE BLOOD COUNT 5.5 10^3/uL (4.3-11.0)
[2020-01-24 11:10] LABS: ALANINE AMINOTRANSFERASE < 6 U/L (0-55); ALBUMIN 4.3 GM/DL (3.2-4.5); ALKALINE PHOSPHATASE 77 U/L (40-136); BILIRUBIN,TOTAL 0.3 MG/DL (0.1-1.0); BUN/CREATININE RATIO 9; CALCIUM 8.9 MG/DL (8.5-10.1); CARBON DIOXIDE 27 MMOL/L (21-32); CHLORIDE 107 MMOL/L (98-107); CREATININE SERUM 0.69 MG/DL (0.60-1.30); GFR ESTIMATED > 60; GLUCOSE 103 MG/DL (70-105); POTASSIUM 3.9 MMOL/L (3.6-5.0); SODIUM 142 MMOL/L (135-145); TOTAL PROTEIN 7.1 GM/DL (6.4-8.2)
[~2020-01-26 09:44] MED LIST changes: -BARIUM SUSPENSION 2.1% (VANILLA SILQ) 450 ML PO ONE; -CATHETER FLUSH 10 ML SYR IV PRN; -GADOBUTROL 10 MMOL/10 ML (GADAVIST) VIAL IV ONE; -HOLD METFORMIN - RECEIVED CONTRAST 20 ML VIAL IV SCH; -IOHEXOL 350 MG/ML 100 ML (OMNIPAQUE 350) VIAL IV ONE; -NS 100 ML (IVPB) BAG IV ONE
[2020-04-09 13:16] LABS: BASOPHILS % (AUTO) 0 % (0-10); EOSINOPHILS # (AUTO) 0.1 10^3/uL (0.0-0.3); EOSINOPHILS % (AUTO) 2 % (0-10); HEMATOCRIT 40 % (35-52); HEMOGLOBIN 13.7 G/DL (11.5-16.0); LYMPHOCYTES # (AUTO) 1.2 X 10^3 (1.0-4.0); LYMPHOCYTES % (AUTO) 24 % (12-44); MEAN CORPUSCULAR HEMOGLOBIN 33 PG (25-34); MEAN CORPUSCULAR HGB CONC 34 G/DL (32-36); MEAN CORPUSCULAR VOLUME 97 FL (80-99); MEAN PLATELET VOLUME 10.2 FL (7.4-10.4); MONOCYTES # (AUTO) 0.5 X 10^3 (0.0-1.0); MONOCYTES % (AUTO) 10 % (0-12); NEUTROPHILS # (AUTO) 3.1 X 10^3 (1.8-7.8); NEUTROPHILS % (AUTO) 63 % (42-75); PLATELET COUNT 213 10^3/uL (130-400); WHITE BLOOD COUNT 4.9 10^3/uL (4.3-11.0)
[2020-04-09 13:34] LABS: ALANINE AMINOTRANSFERASE 7 U/L (0-55); ALKALINE PHOSPHATASE 80 U/L (40-136); BILIRUBIN,TOTAL 0.2 MG/DL (0.1-1.0); BUN/CREATININE RATIO 12; CALCIUM 8.4 MG/DL (8.5-10.1); CARBON DIOXIDE 23 MMOL/L (21-32); CHLORIDE 107 MMOL/L (98-107); CREATININE SERUM 0.73 MG/DL (0.60-1.30); GFR ESTIMATED > 60; GLUCOSE 81 MG/DL (70-105); POTASSIUM 3.8 MMOL/L (3.6-5.0); SODIUM 140 MMOL/L (135-145); TOTAL PROTEIN 6.8 GM/DL (6.4-8.2)
== END 2020-04-09 13:03 | disposition home or self-care (01) ==
LOC: ONC 09:44
PROVIDERS: ATTEND Internal Medicine Hematology & Oncology
DX: C34.90 Malignant neoplasm of unspecified part of unspecified bronchus or lung (principal)
CPT/HCPCS: 36591; 80053; 85025; 99213

== ENCOUNTER → 2020-04-09 | Outpatient (CLI) | payer BC, OTHER ==
[~2020-04-09] MED LIST changes: +CATHETER FLUSH 10 ML SYR IV PRN; +HOLD METFORMIN - RECEIVED CONTRAST 20 ML VIAL IV SCH; +IOHEXOL 350 MG/ML 100 ML (OMNIPAQUE 350) VIAL IV ONE; +NS 100 ML (IVPB) BAG IV ONE
--- NOTE | 2020-04-09 15:36 | Diagnostic Imaging Report ---
PROCEDURE: CT chest with contrast, CT abdomen with and without contrast. TECHNIQUE: Precontrast acquisitions were acquired through the abdomen. Multiple contiguous axial images were obtained through the chest and abdomen after administration of intravenous contrast. Auto Exposure Controls were utilized during the CT exam to meet ALARA standards for radiation dose reduction. INDICATION: Small cell lung cancer The previous CT chest, abdomen and pelvis exam of 01/24/2020 noted diffuse abnormal densities involving the left upper lobe and left lower lobe. These findings were felt to be chronic in nature. Those findings are again evident on this study. In the interval since the prior study, however, a band of increased density has developed along the medial aspect of the left upper lobe. There is also now a new 8.7 x 16 x 15.7 mm parenchymal density in the left suprahilar region (image 51 of 185). These new areas of increased density involving the left lung may be secondary to chronic atelectasis and/or scar formation. Acute pneumonia should also be considered. It would be possible, although unlikely, that these findings are neoplastic in nature. A short-term (three-month) follow-up CT chest exam would be recommended for further study. The right lung remains generally clear. The heart is stable in size. Coronary artery calcifications are again noted. The aorta and the pulmonary arteries were not fully opacified. There is no evidence for dissection or for a pulmonary embolus. There is no mediastinal or hilar adenopathy. The thyroid gland is unremarkable. There is no definite breast mass visualized. The right-sided Port-A-Cath is again noted. The images through the abdomen again show that the left adrenal gland has a somewhat bulky appearance. The left adrenal gland does seem stable when compared to the prior study. The liver, spleen, pancreas, kidneys, aorta and inferior vena cava and portal vein show no sign of an acute abnormality. As noted previously, the gallbladder is surgically absent. There are a few fluid-filled segments of small bowel. This appearance is nonspecific. There is no sign of a bowel obstruction. There is no mass or free fluid collection evident. The osseous structures are intact. IMPRESSION: 1. The new areas of increased density in the left upper lung are of uncertain etiology. These are unlikely to be neoplastic in nature but a short-term (three-month) follow-up CT chest exam would be recommended for further study. 2. There is no acute abnormality of the chest or abdomen. The overall appearance of the abdomen is stable when compared to the prior exam. Dictated by: Dictated on workstation # [id number]
== END ==
LOC: RAD 13:33
PROVIDERS: ATTEND Internal Medicine Hematology & Oncology
DX: C34.32 Malignant neoplasm of lower lobe, left bronchus or lung (principal); Z72.0 Tobacco use; Z95.9 Presence of cardiac and vascular implant and graft, unspecified
CPT/HCPCS: 71260; 74170

== ENCOUNTER → 2020-06-27 | Outpatient (CLI) | payer BC ==
[~2020-06-27] MED LIST changes: +BARIUM SUSPENSION 2.1% (VANILLA SILQ) 450 ML PO ONE; -CATHETER FLUSH 10 ML SYR IV PRN
--- NOTE | 2020-06-27 10:21 | Diagnostic Imaging Report ---
EXAMINATION: CT Chest and Abdomen with intravenous contrast. TECHNIQUE: Multiple contiguous axial images were obtained through the chest and abdomen after the uneventful administration of intravenous contrast. All CT scans use one or more of the following dose optimizing techniques: automated exposure control, MA and/or KvP adjustment based on a patient size and exam type, or iterative reconstruction. HISTORY: Small cell lung cancer COMPARISON: 07/19/2020 FINDINGS: There is no edema or pneumonia. No pleural effusion. No pneumothorax. No suspicious nodules. There is unchanged scarring in the left lung. No evidence for local recurrence is seen. There is no axillary or supraclavicular lymphadenopathy. There is no mediastinal lymphadenopathy. Heart size is normal. There are mild coronary artery calcifications. No pericardial effusion. Aorta is normal in caliber. The degree of soft tissue thickening in the left hilum is unchanged. Right port catheter tip terminates in the superior vena cava. The liver is normal without focal lesion. There is no biliary ductal dilation. Gallbladder is surgically absent. Pancreas is normal. Spleen is normal. Adrenal glands are normal. Simple cysts are seen in the kidneys. No suspicious renal lesions. There is no hydronephrosis. Visualized bowel is normal in caliber without obstruction or inflammation. No free fluid or air. No abdominal lymphadenopathy. Aorta is normal in caliber without aneurysm. There are no suspicious osseus lesions. IMPRESSION: 1. Stable scarring in the left lung without evidence for local recurrence or metastatic disease. Dictated by: Dictated on workstation # [id number]
== END ==
LOC: RAD 12:15
PROVIDERS: ATTEND Internal Medicine Hematology & Oncology
DX: C34.32 Malignant neoplasm of lower lobe, left bronchus or lung (principal)
CPT/HCPCS: 71260; 74160

== ENCOUNTER → 2020-07-08 | Outpatient (RCR) | payer BC, OTHER ==
[2020-06-27 09:05] LABS: BASOPHILS % (AUTO) 0 % (0-10); EOSINOPHILS # (AUTO) 0.1 10^3/uL (0.0-0.3); EOSINOPHILS % (AUTO) 2 % (0-10); HEMATOCRIT 44 % (35-52); HEMOGLOBIN 14.7 g/dL (11.5-16.0); LYMPHOCYTES # (AUTO) 1.3 10^3/uL (1.0-4.0); LYMPHOCYTES % (AUTO) 23 % (12-44); MEAN CORPUSCULAR HEMOGLOBIN 33 pg (25-34); MEAN CORPUSCULAR HGB CONC 33 g/dL (32-36); MEAN CORPUSCULAR VOLUME 98 fL (80-99); MEAN PLATELET VOLUME 10.1 fL (9.0-12.2); MONOCYTES # (AUTO) 0.5 10^3/uL (0.0-1.0); MONOCYTES % (AUTO) 10 % (0-12); NEUTROPHILS # (AUTO) 3.5 10^3/uL (1.8-7.8); NEUTROPHILS % (AUTO) 64 % (42-75); PLATELET COUNT 213 10^3/uL (130-400); WHITE BLOOD COUNT 5.5 10^3/uL (4.3-11.0)
[2020-06-27 09:25] LABS: ALANINE AMINOTRANSFERASE 8 U/L (0-55); ALBUMIN 4.2 GM/DL (3.2-4.5); ALKALINE PHOSPHATASE 90 U/L (40-136); BILIRUBIN,TOTAL 0.3 MG/DL (0.1-1.0); BUN/CREATININE RATIO 10; CALCIUM 8.9 MG/DL (8.5-10.1); CARBON DIOXIDE 24 MMOL/L (21-32); CHLORIDE 105 MMOL/L (98-107); CREATININE SERUM 0.79 MG/DL (0.60-1.30); GFR ESTIMATED > 60; GLUCOSE 111 MG/DL (70-105); POTASSIUM 3.5 MMOL/L (3.6-5.0); SODIUM 142 MMOL/L (135-145); TOTAL PROTEIN 7.1 GM/DL (6.4-8.2)
[~2020-07-08] MED LIST changes: -BARIUM SUSPENSION 2.1% (VANILLA SILQ) 450 ML PO ONE; -HOLD METFORMIN - RECEIVED CONTRAST 20 ML VIAL IV SCH; -IOHEXOL 350 MG/ML 100 ML (OMNIPAQUE 350) VIAL IV ONE; -NS 100 ML (IVPB) BAG IV ONE
== END | disposition home or self-care (01) ==
LOC: ONC 04-09 13:10
PROVIDERS: ATTEND Internal Medicine Hematology & Oncology
DX: C34.92 Malignant neoplasm of unspecified part of left bronchus or lung (principal); E78.5 Hyperlipidemia, unspecified; L40.9 Psoriasis, unspecified; E88.81 Metabolic syndrome and other insulin resistance; E11.9 Type 2 diabetes mellitus without complications; Z90.711 Acquired absence of uterus with remaining cervical stump; Z72.0 Tobacco use
CPT/HCPCS: 36591; 80053; 85025; 99213

== ENCOUNTER 2020-09-30 09:12 | Outpatient (RCR) | payer BC, OTHER | END 2020-12-19 08:27 | disposition home or self-care (01) | LOC: ONC 09:12 | PROVIDERS: ATTEND Internal Medicine Hematology & Oncology | DX: Z45.2 Encounter for adjustment and management of vascular access device (principal); C34.92 Malignant neoplasm of unspecified part of left bronchus or lung; E78.5 Hyperlipidemia, unspecified; L40.9 Psoriasis, unspecified; E88.81 Metabolic syndrome and other insulin resistance; E11.9 Type 2 diabetes mellitus without complications; Z90.711 Acquired absence of uterus with remaining cervical stump; Z72.0 Tobacco use | CPT/HCPCS: 96523 ==

== ENCOUNTER 2021-01-20 13:56 | Outpatient (RCR) | payer BC, OTHER ==
[2021-01-20 14:23] LABS: BASOPHILS % (AUTO) 1 % (0-10); EOSINOPHILS # (AUTO) 0.2 10^3/uL (0.0-0.3); EOSINOPHILS % (AUTO) 3 % (0-10); HEMATOCRIT 42 % (35-52); LYMPHOCYTES # (AUTO) 1.4 10^3/uL (1.0-4.0); LYMPHOCYTES % (AUTO) 22 % (12-44); MEAN CORPUSCULAR HEMOGLOBIN 33 pg (25-34); MEAN CORPUSCULAR HGB CONC 34 g/dL (32-36); MEAN CORPUSCULAR VOLUME 98 fL (80-99); MEAN PLATELET VOLUME 10.7 fL (9.0-12.2); MONOCYTES # (AUTO) 0.6 10^3/uL (0.0-1.0); MONOCYTES % (AUTO) 9 % (0-12); NEUTROPHILS # (AUTO) 4.2 10^3/uL (1.8-7.8); NEUTROPHILS % (AUTO) 65 % (42-75); PLATELET COUNT 226 10^3/uL (130-400); WHITE BLOOD COUNT 6.5 10^3/uL (4.3-11.0)
[2021-01-20 14:47] LABS: ALANINE AMINOTRANSFERASE 8 U/L (0-55); ALKALINE PHOSPHATASE 82 U/L (40-136); BILIRUBIN,TOTAL 0.2 MG/DL (0.1-1.0); BUN/CREATININE RATIO 12; CALCIUM 8.5 MG/DL (8.5-10.1); CARBON DIOXIDE 28 MMOL/L (21-32); CHLORIDE 107 MMOL/L (98-107); CREATININE SERUM 0.84 MG/DL (0.60-1.30); GFR ESTIMATED > 60; GLUCOSE 112 MG/DL (70-105); SODIUM 141 MMOL/L (135-145); TOTAL PROTEIN 6.7 GM/DL (6.4-8.2)
== END 2021-03-19 | disposition home or self-care (01) ==
LOC: ONC 13:56
PROVIDERS: ATTEND Internal Medicine Hematology & Oncology
DX: Z45.2 Encounter for adjustment and management of vascular access device (principal); C34.92 Malignant neoplasm of unspecified part of left bronchus or lung; E78.5 Hyperlipidemia, unspecified; L40.9 Psoriasis, unspecified; E88.81 Metabolic syndrome and other insulin resistance; E11.9 Type 2 diabetes mellitus without complications; Z90.711 Acquired absence of uterus with remaining cervical stump; Z72.0 Tobacco use
CPT/HCPCS: 36591; 80053; 85025; 96523

== ENCOUNTER 2021-04-14 12:01 | Outpatient (RCR) | payer OTHER ==
[2021-07-01 14:57] LABS: BASOPHILS % (AUTO) 0 % (0-10); EOSINOPHILS # (AUTO) 0.1 10^3/uL (0.0-0.3); EOSINOPHILS % (AUTO) 2 % (0-10); HEMATOCRIT 42 % (35-52); HEMOGLOBIN 14.2 g/dL (11.5-16.0); LYMPHOCYTES # (AUTO) 1.4 X 10^3 (1.0-4.0); LYMPHOCYTES % (AUTO) 19 % (12-44); MEAN CORPUSCULAR HEMOGLOBIN 32 pg (25-34); MEAN CORPUSCULAR HGB CONC 34 g/dL (32-36); MEAN CORPUSCULAR VOLUME 96 fL (80-99); MEAN PLATELET VOLUME 10.3 fL (9.0-12.2); MONOCYTES # (AUTO) 0.6 X 10^3 (0.0-1.0); MONOCYTES % (AUTO) 8 % (0-12); NEUTROPHILS # (AUTO) 5.3 X 10^3 (1.8-7.8); NEUTROPHILS % (AUTO) 71 % (42-75); PLATELET COUNT 224 10^3/uL (130-400); WHITE BLOOD COUNT 7.5 10^3/uL (4.3-11.0)
[2021-07-01 15:13] LABS: ALANINE AMINOTRANSFERASE < 6 U/L (0-55); ALBUMIN 3.9 GM/DL (3.2-4.5); ALKALINE PHOSPHATASE 81 U/L (40-136); BILIRUBIN,TOTAL 0.2 MG/DL (0.1-1.0); BUN/CREATININE RATIO 10; CALCIUM 8.5 MG/DL (8.5-10.1); CARBON DIOXIDE 22 MMOL/L (21-32); CHLORIDE 107 MMOL/L (98-107); CREATININE SERUM 0.72 MG/DL (0.60-1.30); GFR ESTIMATED 85; GLUCOSE 128 MG/DL (70-105); POTASSIUM 3.5 MMOL/L (3.6-5.0); SODIUM 142 MMOL/L (135-145); TOTAL PROTEIN 6.6 GM/DL (6.4-8.2)
== END 2021-07-01 14:05 | disposition home or self-care (01) ==
LOC: ONC 12:01
PROVIDERS: ATTEND Internal Medicine Hematology & Oncology
DX: Z45.2 Encounter for adjustment and management of vascular access device (principal); C34.92 Malignant neoplasm of unspecified part of left bronchus or lung; E78.00 Pure hypercholesterolemia, unspecified; E11.9 Type 2 diabetes mellitus without complications; Z92.21 Personal history of antineoplastic chemotherapy; Z92.3 Personal history of irradiation; Z72.0 Tobacco use
CPT/HCPCS: 80053; 85025; 96523

== ENCOUNTER 2021-07-01 14:10 | Outpatient (RCR) | payer BC | END 2021-08-29 | disposition home or self-care (01) | LOC: ONC 14:10 | PROVIDERS: ATTEND Internal Medicine Hematology & Oncology | DX: Z45.2 Encounter for adjustment and management of vascular access device (principal); C34.92 Malignant neoplasm of unspecified part of left bronchus or lung; E78.00 Pure hypercholesterolemia, unspecified; E11.9 Type 2 diabetes mellitus without complications; Z92.21 Personal history of antineoplastic chemotherapy; Z92.3 Personal history of irradiation; Z72.0 Tobacco use | CPT/HCPCS: 36591 ==

== ENCOUNTER 2021-09-23 12:31 | Outpatient (RCR) | payer BC | END 2021-09-29 | disposition home or self-care (01) | LOC: ONC 12:31 | PROVIDERS: ATTEND Internal Medicine Hematology & Oncology | DX: Z45.2 Encounter for adjustment and management of vascular access device (principal) | CPT/HCPCS: 36591 ==

== ENCOUNTER 2021-12-16 12:10 | Outpatient (RCR) | payer BC | END 2021-12-27 | disposition home or self-care (01) | LOC: ONC 12:10 | PROVIDERS: ATTEND Internal Medicine Hematology & Oncology | DX: Z45.2 Encounter for adjustment and management of vascular access device (principal) ==

== ENCOUNTER 2022-01-29 13:28 | Outpatient (RCR) | payer BC ==
[2022-02-04] MEDS ORDERED: FAMO10TA43 PO (14:19)
== END 2022-02-26 | disposition home or self-care (01) ==
LOC: ONC 13:28
PROVIDERS: ATTEND Internal Medicine Hematology & Oncology
DX: C34.90 Malignant neoplasm of unspecified part of unspecified bronchus or lung (principal); E11.9 Type 2 diabetes mellitus without complications; E78.00 Pure hypercholesterolemia, unspecified
CPT/HCPCS: 99213

== ENCOUNTER 2022-02-04 13:16 | Outpatient (CLI) | payer BC ==
[~2022-02-04] VITALS: Ht 162.6 cm; Wt 98.2 kg
[2022-02-04] MEDS ORDERED: FAMO10TA43 PO ×2 (14:19)
== END 2022-02-04 14:31 | disposition home or self-care (01) ==
LOC: PREOP 13:16
PROVIDERS: ATTEND Surgery
DX: Z01.818 Encounter for other preprocedural examination (principal)

== ENCOUNTER 2022-02-05 07:42 | Day surgery (SDC) | payer BC ==
[2022-02-05] VITALS (7 sets, daily range): BP systolic 123–133; BP diastolic 69–87
[~2022-02-05] VITALS: Ht 162.6 cm; Wt 98.2 kg
[~2022-02-05 07:42] MED LIST changes: +FAMO10TA43 PO
[2022-02-05] MEDS ORDERED: CLINDAMYCIN 600 MG/50 ML IVPB 50 ML IV ONE (08:00)
[2022-02-05] MEDS ORDERED: LACTATED RINGERS 1,000 ML IV SCH (08:30)
--- NOTE | 2022-02-05 09:13 | Progress Note-Pre Operative ---
Pre-Operative Progress Note H&P Reviewed The H&P was reviewed, patient examined and no changes noted. Date Seen by Provider: Feb 05, 2022 Time Seen by Provider: 09:12 Date H&P Reviewed: Feb 05, 2022 Time H&P Reviewed: 09:12 Pre-Operative Diagnosis: lung cancer JOB VARGHESE DO Feb 05, 2022 09:13
[2022-02-05] MEDS ORDERED: LIDOCAINE/EPI 2% 1:200,00 (XYLOCAINE) 10 ML VIAL ONE (09:28)
[2022-02-05] MEDS ORDERED: proPOfol 200 MG/20 ML (DIPRIVAN) VIAL IV ONE (09:38)
[2022-02-05] MEDS ORDERED: MIDAZOLAM 2 MG/2 ML (VERSED) VIAL ONE (09:38)
--- NOTE | 2022-02-05 10:47 | Progress Note-Post Operative ---
Post-Operative Progess Note Surgeon (s)/Commercial Fisher (s) Surgeon JOB VARGHESE DO Commercial Fisher: na Pre-Operative Diagnosis lung cancer Post-Operative Diagnosis same Procedure & Operative Findings Date of Procedure 02/05/22 Procedure Performed/Findings PROCEDURE: Removal of port, COMPLICATIONS: None. INDICATIONS: The patient is a 56 year-old female who had a port previously placed. Patient port extremely painful since last accessed and wanting it to be removed. The patient was explained risk and benefits of the procedure and wished to proceed with procedure. Consent was signed on the chart. PROCEDURE: The patient was taken to the operating suite and was prepped and draped in sterile fashion. A surgical pause was performed. Local anesthetic was infiltrated to the area around the port. A number 15 blade scalpel was used to make an incision. Cautery was used to dissect down to the port which was then grasped and then dissected around. The catheter was removed in its entirety. The port was then able to be dissected out of the pocket and elevated. The wound was then irrigated with copious amounts of irrigation. Hemostasis had been achieved. The subcutaneous tissues were then reapproximated using 3-0 Vicryl. The area was then washed and dried and Skin Affix placed over the incision. The patient tolerated the procedure well without complication and was taken to recovery room in stable condition. Anesthesia Type mac c local Estimated Blood Loss Estimated blood loss (mL): minimal Specimens/Packing Specimens Removed JOB Duque DO Feb 05, 2022 10:47
--- NOTE | 2022-02-05 10:55 | Discharge Inst-Simple/Standard ---
Discharge Inst-Standard Patient Instructions/Follow Up Plan of Care/Instructions/FU: 2 weeks Son Activity as Tolerated: Yes Discharge Diet: Regular Diet Other Inst to Patient Follow up Appt: Make appointment for 2 week. Instructions: No strenuous activity. May shower in 24 hours, no tub bath or soaking. Use incentive spirometer at home as directed. No Smoking Skin/Wound Care: You have special glue over your incision that will fall off on it's own. Symptoms to Report: Appetite Changes, Extremity Discoloration, Numbness/Tingling, Swelling Increased, Bleeding Excessive, Eyesight Changes, Pain Increased, Urine Color Change, Constipation(Persistent), Fever over 101 degree F, Pain/Pressure in [address] [place], Urinating Difficulty, Cough Up/Vomit Blood, Heart Beat Irreg/Pounding, Pain/Pressure in jaw, Vaginal Bleeding Increase, Cramps in feet or legs, Lightheadedness, Pain/Pressure in shoulder, Diarrhea(Persistent), Memory Changes Suddenly, Questions/Concerns, Weight gain consecutive days, Dizziness/Fainting, Nausea/Vomiting, Shortness of Breath, Weight gain over 2 pounds If questions or concerns contact your physician Or seek help at emergency department. JOB VARGHESE DO Feb 05, 2022 10:54
--- NOTE | 2022-02-05 11:27 | Anesthesia-General Post-Op ---
MAC Patient Condition Mental Status/LOC: Same as Preop Cardiovascular: Satisfactory Nausea/Vomiting: Absent Respiratory: Satisfactory Pain: Controlled Complications: Absent Post Op Complications Complications None Follow Up Care/Instructions Patient Instructions None needed. Anesthesiology Discharge Order Discharge Order Patient is doing well, no complaints, stable vital signs, no apparent adverse anesthesia problems. No complications reported per nursing. TD GARCÍA CRNA Feb 05, 2022 11:26
== END 2022-02-05 12:05 | disposition home or self-care (01) ==
LOC: SDC 07:42
PROVIDERS: ATTEND Surgery
DX: C34.90 Malignant neoplasm of unspecified part of unspecified bronchus or lung (principal); F17.210 Nicotine dependence, cigarettes, uncomplicated
CPT/HCPCS: 87081

== ENCOUNTER → 2022-06-02 | Outpatient (CLI) | payer BC ==
[~2022-06-02] MED LIST changes: +CATHETER FLUSH 10 ML SYR IV PRN; +HOLD METFORMIN - RECEIVED CONTRAST 20 ML VIAL IV SCH; +IOHEXOL 350 MG/ML 100 ML (OMNIPAQUE 350) VIAL IV ONE; +NS 100 ML (IVPB) BAG IV ONE
[2022-06-02 11:51] LABS: CREATININE SERUM 0.83 MG/DL (0.60-1.30)
--- NOTE | 2022-06-02 13:20 | Diagnostic Imaging Report ---
EXAMINATION: CT chest, abdomen, and pelvis with contrast from 06/02/2022. TECHNIQUE: Multiple contiguous axial images were obtained through the chest, abdomen, and pelvis after the administration of intravenous contrast. Auto Exposure Controls were utilized during the CT exam to meet ALARA standards for radiation dose reduction. INDICATION: Small cell carcinoma of the lung. Currently not on treatment. Prior cholecystectomy and hysterectomy. Tubal ligation. COMPARISON: 06/27/2020. FINDINGS: Again seen are airspace opacities within the left lung, similar to previous examination and most consistent with focal scar. Within the anterior left upper lobe, image #31, there is a tiny linear nodularity measuring 4 mm in size. This was not seen on previous examination and should be followed. A punctate density within the right middle lobe, image #57, is stable. There are no pericardial or pleural effusions. There is no new adenopathy. Within the abdomen and pelvis, mild hepatic steatosis is noted throughout the liver with no focal lesions appreciated. The right adrenal gland is unremarkable. There is mild hyperplasia of the left adrenal gland which appears stable from previous examination. The pancreas and spleen are unremarkable. There is no new lymphadenopathy. There is no ascites. No free air. The appendix appears normal. There are multiple cystic lesions throughout both kidneys, stable from previous imaging. Atherosclerotic disease is noted. There is a small fat-containing umbilical hernia. There is no acute osseous abnormality. IMPRESSION: 1. Scarring throughout the left lung, stable from previous imaging, with a tiny 4 mm nodule in the left upper lobe, not seen on previous imaging. Short-term follow-up is recommended. Remaining chest is stable. 2. Incidental findings in the abdomen and pelvis with no evidence for a distant metastatic process. Dictated by: Dictated on workstation # [id number]
== END ==
LOC: RAD 11:16
PROVIDERS: ATTEND Internal Medicine Hematology & Oncology
DX: C34.90 Malignant neoplasm of unspecified part of unspecified bronchus or lung (principal); Z90.49 Acquired absence of other specified parts of digestive tract; Z90.710 Acquired absence of both cervix and uterus; Z98.51 Tubal ligation status
CPT/HCPCS: 36415; 71260; 74177; 82565; 84520

== ENCOUNTER 2022-07-02 12:49 | Outpatient (RCR) | payer BC ==
[~2022-07-02 12:49] MED LIST changes: -CATHETER FLUSH 10 ML SYR IV PRN; -HOLD METFORMIN - RECEIVED CONTRAST 20 ML VIAL IV SCH; -IOHEXOL 350 MG/ML 100 ML (OMNIPAQUE 350) VIAL IV ONE; -NS 100 ML (IVPB) BAG IV ONE
[2022-07-02 14:25] LABS: BASOPHILS % (AUTO) 1 % (0-10); EOSINOPHILS # (AUTO) 0.2 10^3/uL (0.0-0.3); EOSINOPHILS % (AUTO) 2 % (0-10); HEMATOCRIT 42 % (35-52); HEMOGLOBIN 14.3 g/dL (11.5-16.0); LYMPHOCYTES # (AUTO) 1.4 10^3/uL (1.0-4.0); LYMPHOCYTES % (AUTO) 18 % (12-44); MEAN CORPUSCULAR HEMOGLOBIN 33 pg (25-34); MEAN CORPUSCULAR HGB CONC 34 g/dL (32-36); MEAN CORPUSCULAR VOLUME 97 fL (80-99); MEAN PLATELET VOLUME 10.8 fL (9.0-12.2); MONOCYTES # (AUTO) 0.6 10^3/uL (0.0-1.0); MONOCYTES % (AUTO) 8 % (0-12); NEUTROPHILS # (AUTO) 5.5 10^3/uL (1.8-7.8); NEUTROPHILS % (AUTO) 71 % (42-75); PLATELET COUNT 219 10^3/uL (130-400); WHITE BLOOD COUNT 7.7 10^3/uL (4.3-11.0)
[2022-07-02 14:39] LABS: ALBUMIN 3.8 GM/DL (3.2-4.5); BILIRUBIN,TOTAL 0.2 MG/DL (0.1-1.0); CREATININE SERUM 0.76 MG/DL (0.60-1.30); POTASSIUM 3.6 MMOL/L (3.6-5.0); TOTAL PROTEIN 6.6 GM/DL (6.4-8.2)
== END 2022-07-29 | disposition home or self-care (01) ==
LOC: ONC 12:49
PROVIDERS: ATTEND Internal Medicine Hematology & Oncology
DX: C34.90 Malignant neoplasm of unspecified part of unspecified bronchus or lung (principal); E11.9 Type 2 diabetes mellitus without complications; E78.00 Pure hypercholesterolemia, unspecified
CPT/HCPCS: 80053; 85025; G0463; 36415; 99213